=== PATIENT | male | born 1945 | race African-American/Black ===

== ENCOUNTER 2016-04-12 11:02 | Inpatient (IN) | payer OTHER ==
[2016-04-12 12:05] VITALS: BMI 23.8
--- NOTE | 2016-04-12 14:18 | HP ---
CIWA Score - CIWA Score Nausea/Vomitin Muscle Tremors: 3 Anxiety: 3 Agitation: 3 Paroxysmal Sweats: 2 Orientation: 0-Oriented Tacttile Disturbances: 2-Mild Itch/Numbness/Burn Auditory Disturbances: 2-Mild Harshness/Frighten Visual Disturbances: 2-Mild Sensitivity Headache: 2-Mild CIWA-Ar Total Score: 22 Admission ROS BHS - HPI Chief Complaint: i need help to stop drinking alcohol Allergies/Adverse Reactions: Allergies Allergy/AdvReac Type Severity Reaction Status Date / Time No Known Allergies Allergy Verified 04/12/16 13:03 History of Present Illness: this 70 years old male with alcohol dependence,withdrawal symptom,last detox to 05/04/15 [facility] longest period of sobriety 5 moths depression asthma arthritis seizure last 30 years ago Exam Limitations: No Limitations - Ebola screening Have you traveled outside of the country in the last 21 days: No (N) Have you had contact with anyone from an Ebola affected area: No Have you been sick,other than usual withdrawal symptoms: No Do you have a fever: No - Review of Systems Constitutional: Loss of Appetite, Malaise, Night Sweats, Weakness, Unintentional Wgt. Loss EENT: reports: Nose Congestion Respiratory: reports: No Symptoms reported, Other (asthma) Cardiac: reports: Palpitations GI: reports: Diarrhea, Nausea, Vomiting, Abdominal cramping : reports: No Symptoms Reported Musculoskeletal: reports: Back Pain, Muscle Pain Integumentary: reports: Dryness Neuro: reports: Headache, Tremors Endocrine: reports: No Symptoms Reported Hematology: reports: No Symptoms Reported Psychiatric: reports: Depressed Patient History - Patient Medical History Hx Anemia: No Hx Asthma: Yes (on albuterol inhaler ) Hx Chronic Obstructive Pulmonary Disease (COPD): No Hx Cancer: No Hx Cardiac Disorders: No Hx Congestive Heart Failure: No Hx Hypertension: Yes (no med) Hx Hypercholesterolemia: No Hx Pacemaker: No HX Cerebrovascular Accident: No Hx Seizures: Yes (40 years ago) Hx Dementia: No Hx Diabetes: No Hx Gastrointestinal Disorders: No Hx Liver Disease: No Hx Genitourinary Disorders: No Hx Sexually Transmitted Disorders: No Hx Renal Disease (ESRD): No Hx Thyroid Disease: No Hx Human Immunodeficiency Virus (HIV): No (NEGATIVE YEARS AGO) Hx Hepatitis C: No Hx Depression: Yes Hx Suicide Attempt: No Hx Bipolar Disorder: No Hx Schizophrenia: No Other Medical History: no suicidal,no homicidal - Patient Surgical History Past Surgical History: Yes Hx Neurologic Surgery: No Hx Cataract Extraction: No Hx Cardiac Surgery: No Hx Lung Surgery: No Hx Breast Surgery: No Hx Breast Biopsy: No Hx Abdominal Surgery: Yes (HERNIA REPAIR RIGHT) Hx Appendectomy: Yes Hx Cholecystectomy: No Hx Genitourinary Surgery: No Hx Section: No Hx Orthopedic Surgery: No Anesthesia Reaction: No - PPD History Previous Implant?: No Implanted On Prior [facility] Admission?: Yes Date: 05/01/15 Results: 0mm PPD to be Administered?: No - Smoking Cessation Smoking history: Former smoker Have you smoked in the past 12 months: No Aproximately how many cigarettes per day: 0 Hx Chewing Tobacco Use: No Initiated information on smoking cessation: Yes 'Breaking Loose' booklet given: 04/12/16 - Substance & Tx. History Hx Alcohol Use: Yes Hx Substance Use: No Substance Use Type: Alcohol Hx Substance Use Treatment: Yes ([facility] 04/29/15 TO 05/04/15) - Substances Abused Alcohol Route: Oral Frequency: Daily Amount used: 1 1/2 pint Vodka Age of first use: 48 Date of Last Use: 04/12/16 Family Disease History - Family Disease History Family History: Denies Admission Physical Exam S - Vital Signs Vital Signs: Vital Signs - 24 hr 04/12/16 12:03 Temperature 96.6 F L Pulse Rate 117 H Respiratory 18 Rate Blood Pressure 141/91 - Physical General Appearance: Yes: Moderate Distress, Tremorous, Irritable, Sweating, Anxious HEENTM: Yes: Nasal Congestion Respiratory: Yes: Lungs Clear Neck: Yes: Within Normal Limits Breast: Yes: Within Normal Limits Cardiology: Yes: Tachycardia Abdominal: Yes: Normal Bowel Sounds, Non Tender, Flat, Soft Genitourinary: Yes: Within Normal Limits Back: Yes: Muscle Spasm Musculoskeletal: Yes: Back pain, Muscle Pain Extremities: Yes: Tremors Neurological: Yes: fruit dumper II-XII NML intact, Fully Oriented, Alert, Motor Strength 5/5 Integumentary: Yes: Dry Lymphatic: Yes: Within Normal Limits - Diagnostic (1) Arthritis Current Visit: No Status: Chronic (2) Bronchial asthma Current Visit: No Status: Chronic Qualifiers: Asthma severity: unspecified severity Asthma complication type: uncomplicated Qualified Code(s): J45.909 - Unspecified asthma, uncomplicated (3) MDD (major depressive disorder) Current Visit: No Status: Chronic Qualifiers: Major depression episode severity: unspecified (4) Alcohol dependence with uncomplicated withdrawal Current Visit: Yes Status: Acute (5) Alcohol dependence with uncomplicated intoxication Current Visit: Yes Status: Acute (6) Syncope Current Visit: Yes Status: Acute (7) History of appendectomy Current Visit: Yes Status: Acute (8) History of hernia repair Current Visit: Yes Status: Acute Cleared for Admission [facility] - Detox or Rehab [facility] Level of Care: Medically Managed Detox Regimen/Protocol: Librium [facility] Breath Alcohol Content Breath Alcohol Content: 0.290 Urine Drug Screen - Results Drug Screen Negative: Yes
[2016-04-12] MEDS ORDERED: MAG HYDROX/AL HYDROX/SIMETH 30 ML UNIT-DOSE CUP PO PRN (14:38)
[2016-04-12] MEDS ORDERED: ACETAMINOPHEN 325 MG TABLET (FP) PO PRN (14:38)
[2016-04-12] MEDS ORDERED: MAGNESIUM HYDROX 2400MG/30ML ORAL SUSPENSION 30 ML CUP PO PRN (14:38)
[2016-04-12] MEDS ORDERED: P-EPHED 60MG/TRIPROLIDI 2.5MG TABLET PO PRN (14:38)
[2016-04-12] MEDS ORDERED: MAGNESIUM CITRATE 300 ML BOTTLE PO PRN (14:38)
[2016-04-12] MEDS ORDERED: chlordiazePOXIDE HCL 25 MG CAPSULE PO PRN (14:38)
[2016-04-12] MEDS ORDERED: MENTHOL/PHENOL 1 EACH UD MM PRN (14:38)
[2016-04-12] MEDS ORDERED: LOPERAMIDE HCL 2 MG CAPSULE PO PRN (14:38)
[2016-04-12] MEDS ORDERED: IBUPROFEN 400 MG TABLET (FP) PO PRN (14:38)
[2016-04-12] MEDS ORDERED: guaiFENesin/D-METHORPHAN HB 10 ML UNIT-DOSE CUPS PO PRN (14:38)
[2016-04-12] MEDS ORDERED: chlordiazePOXIDE HCL 25 MG CAPSULE PO ONE (15:00)
[2016-04-12] MEDS: chlordiazePOXIDE HCL 25 MG CAPSULE PO SCH ×2 (17:28→22:31)
[2016-04-12] MEDS: diphenhydrAMINE HCL 50 MG CAPSULE PO PRN (22:31)
[2016-04-12] MEDS: THIAMINE HCL 100 MG TABLET (FP) PO SCH (22:31)
[2016-04-12 22:54] LABS: URINE APPEARANCE CLEAR; URINE BILIRUBIN NEGATIVE (NEGATIVE); URINE COLOR YELLOW; URINE GLUCOSE (UA) NEGATIVE (NEGATIVE); URINE KETONE NEGATIVE (NEGATIVE); URINE LEUK ESTERASE NEGATIVE (NEGATIVE); URINE NITRITE NEGATIVE (NEGATIVE); URINE PROTEIN NEGATIVE (NEGATIVE); URINE UROBILINOGEN NEGATIVE E.U./dl (0.2-1.0)
[2016-04-12 22:58] LABS: URINE BLOOD 1+ (NEGATIVE)
[2016-04-12] MEDS: BUDESONIDE/FORMETEROL FUMARATE 80/4.5 mcg INHALER IH SCH (23:03)
[2016-04-12 23:05] LABS: URINE HYALINE CAST 9 /lpf; URINE MUCUS RARE; URINE RBC 1 /hpf (0-3); URINE WBC 1 /hpf (3-5)
[2016-04-13] MEDS: chlordiazePOXIDE HCL 25 MG CAPSULE PO SCH ×4 (06:13→22:38)
--- NOTE | 2016-04-13 10:23 | CONSULT ---
[facility] Psychiatric Consult - Data Date of interview: 04/13/16 Admission source: [facility] Identifying data: Readmission to [facility] for this 70 y/o seeking detox treatment on for alcohol dependence.Patient is ,a father of two, domiciled and retired on Social Security. Substance Abuse History: - Smoking Cessation. Smoking history: Former smoker. Have you smoked in the past 12 months: No. Aproximately how many cigarettes per day: 0. Hx Chewing Tobacco Use: No. Initiated information on smoking cessation: Yes. 'Breaking Loose' booklet given: 04/12/16. - Substance & Tx. History. Hx Alcohol Use: Yes. Hx Substance Use: No. Substance Use Type: Alcohol. Hx Substance Use Treatment: Yes ([facility] 04/29/15 TO 05/04/15). - Substances Abused. Alcohol. Route: Oral. Frequency: Daily. Amount used: 1 1/2 pint Vodka. Age of first use: 48. Date of Last Use: 04/12/16. Confirmed by patient. Medical History: Significant for a history of arthritis,alcohol-related seizure, bronchial asthma,COPD and right inguinal herniorraphy. Psychiatric History: Diagnosed with MDD in 2010 ([facility]ipitant : of ).No reported history of psychiatric hospitalizations.Mr Alejandro states that he dropped out of [facility]PD care at [facility] (around May 2015).Stopped taking Paxil.No history of suicide attempts. Physical/Sexual Abuse/Trauma History: Patient denies history of sexual abuse. Mental Status Exam - Mental Status Exam Alert and Oriented to: Time, Place, Person Cognitive Function: Good Patient Appearance: Well Groomed Mood: Withdrawn, Hopeful Affect: Constricted Patient Behavior: Fatigued, Appropriate, Cooperative Speech Pattern: Clear, Appropriate Voice Loudness: Normal Thought Process: Goal Oriented Thought Disorder: Not Present Hallucinations: Denies Suicidal Ideation: Denies Homicidal Ideation: Denies Insight/Judgement: Poor Sleep: Fair Appetite: Fair Muscle strength/Tone: Normal Gait/Station: Normal Psychiatric Findings - Problem List ([place] 1, 2,3) (1) Alcohol dependence with uncomplicated withdrawal Current Visit: Yes Status: Acute (2) MDD (major depressive disorder) Current Visit: Yes Status: Chronic Qualifiers: Major depression episode severity: unspecified (3) Bronchial asthma Current Visit: Yes Status: Chronic Qualifiers: Asthma severity: unspecified severity Asthma complication type: uncomplicated Qualified Code(s): J45.909 - Unspecified asthma, uncomplicated (4) Arthritis Current Visit: Yes Status: Chronic (5) History of appendectomy Current Visit: No Status: Chronic (6) History of hernia repair Current Visit: No Status: Chronic - Initial Treatment Plan Initial Treatment Plan: Psychoeducation.Detoxification.Patient has expressed the wish to resume treatment with an antidepressant.Lexapro is selected (paxil not effective as patient's report).Will start with lexapro 5 mg po daily.Side effects/benefits discussed with the patient.He agrees with this plan.Observation.
[2016-04-13] MEDS: PRENATAL VITAMINS W/ FOLIC ACID TABLET (FP) PO SCH (10:46)
[2016-04-13] MEDS: BUDESONIDE/FORMETEROL FUMARATE 80/4.5 mcg INHALER IH SCH ×2 (10:47→22:55)
[2016-04-13 11:06] LABS: MCH 32.6 pg (25.7-33.7); MCHC 32.9 g/dl (32.0-35.9); MEAN PLT VOLUME 8.3 fl (7.5-11.1); PLATELET COUNT 111 K/MM3 (134-434); RDW 14.9 % (11.9-15.9); WHITE BLOOD COUNT 4.2 K/mm3 (4.0-10.0)
[2016-04-13 11:11] LABS: ALBUMIN 3.5 g/dl (3.4-5.0); ANION GAP 7 (8-16); BILIRUBIN,TOTAL 0.7 mg/dL (0.2-1.0); CALCIUM 9.2 mg/dL (8.5-10.1); CO2 36 mmol/L (21-32); CREATININE 0.7 mg/dL (0.7-1.3); GLUCOSE,RANDOM 100 mg/dL (74-106); SGOT/AST 60 U/L (15-37); SGPT/ALT 36 U/L (12-78); TOT PROT 7.1 g/dl (6.4-8.2)
[2016-04-13 11:12] LABS: ALK PHOS 78 U/L (45-117)
--- NOTE | 2016-04-13 11:40 | PN ---
S CIWA - CIWA Score Nausea/Vomitin Muscle Tremors: 3 Anxiety: 3 Agitation: 3 Paroxysmal Sweats: 3 Orientation: 0-Oriented Tacttile Disturbances: 2-Mild Itch/Numbness/Burn Auditory Disturbances: 0-None Visual Disturbances: 0-None Headache: 0-None Present CIWA-Ar Total Score: 17 BHS Progress Note (SOAP) Subjective: INTERRUPTED SLEEP, SWEATS, SHAKES , DRY ITCHY EYES Objective: 04/13/16 11:38 Vital Signs Temperature 98.3 F 04/13/16 10:30 Pulse Rate 78 04/13/16 10:30 Respiratory Rate 18 04/13/16 10:30 Blood Pressure 129/84 04/13/16 10:30 O2 Sat by Pulse Oximetry (%) Laboratory Tests 04/12/16 04/13/16 04/13/16 22:40 06:30 06:30 WBC 4.2 RBC 4.69 Hgb 15.3 Hct 46.4 MCV 99.0 H MCHC 32.9 RDW 14.9 D Plt Count 111 L MPV 8.3 Sodium 141 Potassium 3.1 L Chloride 98 Carbon Dioxide 36 H Anion Gap 7 L BUN 11 D Creatinine 0.7 Creat Clearance w eGFR > 60 Random Glucose 100 Calcium 9.2 Total Bilirubin 0.7 D AST 60 H D ALT 36 D Alkaline Phosphatase 78 Total Protein 7.1 Albumin 3.5 Urine Color Yellow Urine Appearance Clear Urine pH 6.0 Ur Specific [place] 1.009 Urine Protein Negative Urine Glucose (UA) Negative Urine Ketones Negative Urine Blood 1+ H Urine Nitrite Negative Urine Bilirubin Negative Urine Urobilinogen Negative Ur Leukocyte Esterase Negative Urine RBC 1 Urine WBC 1 Hyaline Casts 9 Urine Mucus Rare PT AOX3 IN NAD AMBULATING Assessment: 04/13/16 11:38 WITHDRAWL SX;S ALLERGY HYPOKALEMIA 04/13/16 11:40 Plan: CONT. DETOX INCREASE FLUIDS VISINE A GGTS KDUR /D
[2016-04-13 11:43] LABS: HIV 1 & 2 AB NEGATIVE; HIV 1 AGp24 NEGATIVE
[2016-04-13] MEDS ORDERED: POTASSIUM CHLORIDE TABS 20 MEQ TABLET.ER (FP) PO ONE (11:45)
[2016-04-13] MEDS: NAPHAZOLINE/PHENIRAMINE OPHTHALMIC 15 ML BOTTLE OU PRN (15:27)
[2016-04-13] MEDS: THIAMINE HCL 100 MG TABLET (FP) PO SCH (22:38)
[2016-04-13] MEDS: diphenhydrAMINE HCL 50 MG CAPSULE PO PRN (22:39)
[2016-04-13] MEDS: ALBUTEROL SO4 6.7 GM HFA INHALER IH PRN (23:19)
[2016-04-14] MEDS: chlordiazePOXIDE HCL 25 MG CAPSULE PO SCH ×2 (05:42→10:54)
[2016-04-14] MEDS: hydrOXYzine PAMOATE 25 MG CAPSULE (FP) PO PRN (09:06)
[2016-04-14] MEDS: POTASSIUM CHLORIDE TABS 20 MEQ TABLET.ER (FP) PO SCH (10:54)
[2016-04-14] MEDS: PRENATAL VITAMINS W/ FOLIC ACID TABLET (FP) PO SCH (10:54)
[2016-04-14] MEDS: BUDESONIDE/FORMETEROL FUMARATE 80/4.5 mcg INHALER IH SCH ×2 (10:55→22:17)
[2016-04-14] MEDS: ESCITALOPRAM OXALATE 10 MG TABLET (FP) PO SCH (10:55)
--- NOTE | 2016-04-14 11:27 | PN ---
[facility] CIWA - CIWA Score Nausea/Vomitin-No Nausea/No Vomiting Muscle Tremors: 4-Moderate,w/Arms Extend Anxiety: 3 Agitation: 4-Moderately Restless Paroxysmal Sweats: 3 Orientation: 0-Oriented Tacttile Disturbances: 0-None Auditory Disturbances: 0-None Visual Disturbances: 0-None Headache: 1-Very Mild CIWA-Ar Total Score: 15 BHS Progress Note (SOAP) Subjective: appetite is better sweats body aches shakes interrupted sleep Objective: 04/14/16 11:25 Vital Signs Temperature 97.7 F 04/14/16 11:20 Pulse Rate 108 H 04/14/16 11:20 Respiratory Rate 16 04/14/16 11:20 Blood Pressure 106/53 04/14/16 11:20 O2 Sat by Pulse Oximetry (%) Laboratory Tests 04/12/16 04/12/16 04/13/16 06:30 22:40 06:30 WBC 4.2 RBC 4.69 Hgb 15.3 Hct 46.4 MCV 99.0 H MCHC 32.9 RDW 14.9 D Plt Count 111 L MPV 8.3 Sodium Potassium Chloride Carbon Dioxide Anion Gap BUN Creatinine Creat Clearance w eGFR Random Glucose Calcium Total Bilirubin AST ALT Alkaline Phosphatase Total Protein Albumin Urine Color Yellow Urine Appearance Clear Urine pH 6.0 Ur Specific [place] 1.009 Urine Protein Negative Urine Glucose (UA) Negative Urine Ketones Negative Urine Blood 1+ H Urine Nitrite Negative Urine Bilirubin Negative Urine Urobilinogen Negative Ur Leukocyte Esterase Negative Urine RBC 1 Urine WBC 1 Hyaline Casts 9 Urine Mucus Rare RPR Titer HIV 1&2 Antibody Screen Negative HIV P24 Antigen Negative 04/13/16 04/13/16 06:30 06:30 WBC RBC Hgb Hct MCV MCHC RDW Plt Count MPV Sodium 141 Potassium 3.1 L Chloride 98 Carbon Dioxide 36 H Anion Gap 7 L BUN 11 D Creatinine 0.7 Creat Clearance w eGFR > 60 Random Glucose 100 Calcium 9.2 Total Bilirubin 0.7 D AST 60 H D ALT 36 D Alkaline Phosphatase 78 Total Protein 7.1 Albumin 3.5 Urine Color Urine Appearance Urine pH Ur Specific [place] Urine Protein Urine Glucose (UA) Urine Ketones Urine Blood Urine Nitrite Urine Bilirubin Urine Urobilinogen Ur Leukocyte Esterase Urine RBC Urine WBC Hyaline Casts Urine Mucus RPR Titer Nonreactive HIV 1&2 Antibody Screen HIV P24 Antigen awake/alert ambulating no acute distress Assessment: 04/14/16 11:26 withdrawal sx Plan: continue detox increase fluids motrin prn
[2016-04-14] MEDS: chlordiazePOXIDE 5 MG CAPSULE PO SCH ×2 (17:19→22:16)
[2016-04-14] MEDS: diphenhydrAMINE HCL 50 MG CAPSULE PO PRN (22:16)
[2016-04-14] MEDS: THIAMINE HCL 100 MG TABLET (FP) PO SCH (22:16)
[2016-04-14] MEDS: ALBUTEROL SO4 6.7 GM HFA INHALER IH PRN (22:17)
[2016-04-15] MEDS: chlordiazePOXIDE 5 MG CAPSULE PO SCH ×2 (06:01→10:30)
[2016-04-15] MEDS: POTASSIUM CHLORIDE TABS 20 MEQ TABLET.ER (FP) PO SCH (10:30)
[2016-04-15] MEDS: hydrOXYzine PAMOATE 25 MG CAPSULE (FP) PO PRN (10:30)
[2016-04-15] MEDS: PRENATAL VITAMINS W/ FOLIC ACID TABLET (FP) PO SCH (10:30)
[2016-04-15] MEDS: ESCITALOPRAM OXALATE 10 MG TABLET (FP) PO SCH (10:31)
[2016-04-15] MEDS: BUDESONIDE/FORMETEROL FUMARATE 80/4.5 mcg INHALER IH SCH ×2 (10:31→22:39)
[2016-04-15] MEDS: NAPHAZOLINE/PHENIRAMINE OPHTHALMIC 15 ML BOTTLE OU PRN (10:31)
--- NOTE | 2016-04-15 11:17 | PN ---
BHS Progress Note (SOAP) Subjective: interrupteed sleep, sweats, shakes Objective: 04/15/16 11:13 Vital Signs Temperature 98 F 04/15/16 10:00 Pulse Rate 96 H 04/15/16 10:00 Respiratory Rate 16 04/15/16 10:00 Blood Pressure 145/93 04/15/16 10:00 O2 Sat by Pulse Oximetry (%) Laboratory Tests 04/12/16 04/12/16 04/13/16 06:30 22:40 06:30 WBC 4.2 RBC 4.69 Hgb 15.3 Hct 46.4 MCV 99.0 H MCHC 32.9 RDW 14.9 D Plt Count 111 L MPV 8.3 Sodium Potassium Chloride Carbon Dioxide Anion Gap BUN Creatinine Creat Clearance w eGFR Random Glucose Calcium Total Bilirubin AST ALT Alkaline Phosphatase Total Protein Albumin Urine Color Yellow Urine Appearance Clear Urine pH 6.0 Ur Specific [place] 1.009 Urine Protein Negative Urine Glucose (UA) Negative Urine Ketones Negative Urine Blood 1+ H Urine Nitrite Negative Urine Bilirubin Negative Urine Urobilinogen Negative Ur Leukocyte Esterase Negative Urine RBC 1 Urine WBC 1 Hyaline Casts 9 Urine Mucus Rare RPR Titer HIV 1&2 Antibody Screen Negative HIV P24 Antigen Negative 04/13/16 04/13/16 06:30 06:30 WBC RBC Hgb Hct MCV MCHC RDW Plt Count MPV Sodium 141 Potassium 3.1 L Chloride 98 Carbon Dioxide 36 H Anion Gap 7 L BUN 11 D Creatinine 0.7 Creat Clearance w eGFR > 60 Random Glucose 100 Calcium 9.2 Total Bilirubin 0.7 D AST 60 H D ALT 36 D Alkaline Phosphatase 78 Total Protein 7.1 Albumin 3.5 Urine Color Urine Appearance Urine pH Ur Specific [place] Urine Protein Urine Glucose (UA) Urine Ketones Urine Blood Urine Nitrite Urine Bilirubin Urine Urobilinogen Ur Leukocyte Esterase Urine RBC Urine WBC Hyaline Casts Urine Mucus RPR Titer Nonreactive HIV 1&2 Antibody Screen HIV P24 Antigen interrupted sleep, sweats, shakes 04/15/16 11:15 Assessment: 04/15/16 11:14 withdrawl sx's hypokalemia 04/15/16 11:15 04/15/16 11:16 Plan: cont. detox increase fluids kdur 20meg /d
[2016-04-15] MEDS: chlordiazePOXIDE HCL 10 MG CAPSULE PO SCH ×2 (17:38→22:36)
[2016-04-15] MEDS: diphenhydrAMINE HCL 50 MG CAPSULE PO PRN (22:37)
[2016-04-15] MEDS: THIAMINE HCL 100 MG TABLET (FP) PO SCH (22:37)
[2016-04-15] MEDS: ALBUTEROL SO4 6.7 GM HFA INHALER IH PRN (22:40)
[2016-04-16] MEDS: chlordiazePOXIDE HCL 10 MG CAPSULE PO SCH ×2 (05:28→10:45)
--- NOTE | 2016-04-16 08:11 | DS ---
[facility] Detox Discharge Summary Admission Date: 04/12/16 Discharge Date: 04/16/16 - History Present History: Alcohol Dependence - Physical Exam Results Vital Signs: Vital Signs Temperature 97.3 F L 04/16/16 06:00 Pulse Rate 83 04/16/16 06:00 Respiratory Rate 16 04/16/16 06:00 Blood Pressure 140/79 04/16/16 06:00 O2 Sat by Pulse Oximetry (%) - Treatment Hospital Course: Detox Protocol Followed, Detoxed Safely, Responded well, Discharged Condition Good, Rehab Referral Accepted - Medication Discharge Medications: Ambulatory Orders Tetrahydrozoline HCl/Zn Sulf [Visine Allergy Relief Drop] 2 drop AU PRN PRN Paroxetine HCl [Paxil -] 20 mg PO DAILY #30 tablet 04/30/15 Albuterol Sulfate Inhaler - [Ventolin HFA Inhaler -] 2 inh PO Q4H PRN #1 cartridge 05/04/15 Budesonide/Formeterol Fumarate [SYMBICORT 80/4.5mcg -] 2 inh IH BID #1 canister 05/04/15 - Diagnosis (1) Alcohol dependence with uncomplicated intoxication Current Visit: Yes Status: Chronic (2) Alcohol dependence with uncomplicated withdrawal Current Visit: Yes Status: Chronic (3) Syncope Current Visit: Yes Status: Acute (4) Arthritis Current Visit: Yes Status: Chronic (5) Bronchial asthma Current Visit: Yes Status: Chronic Qualifiers: Asthma severity: unspecified severity Asthma complication type: uncomplicated Qualified Code(s): J45.909 - Unspecified asthma, uncomplicated (6) MDD (major depressive disorder) Current Visit: Yes Status: Chronic Qualifiers: Major depression episode severity: unspecified (7) Alcohol dependence Current Visit: No Status: Active (8) Depression Current Visit: No Status: Chronic Qualifiers: Depression Type: unspecified Qualified Code(s): F32.9 - Major depressive disorder, single episode, unspecified (9) History of appendectomy Current Visit: No Status: Chronic (10) History of hernia repair Current Visit: No Status: Chronic - AMA Did Patient Leave Against Medical Advice: No
--- NOTE | 2016-04-16 10:00 | PN ---
[facility] Progress Note Note: Psychiatry Attending's note: Follow up visit.Patient seen at his request. Mr Allen expresses his decision to stop taking lexapro. Patient is made aware of the risk of non-adherence to medications. Also informed of the benefits of antidepressant drugs. No script issued for escitalopram (patient declined). Mental status remains stable for discharge. Uneventful hospital course.
[2016-04-16 10:10] VITALS: BP 111/77; PULSE 109; TEMP 97.7
[2016-04-16] MEDS: PRENATAL VITAMINS W/ FOLIC ACID TABLET (FP) PO SCH (10:42)
[2016-04-16] MEDS: ESCITALOPRAM OXALATE 10 MG TABLET (FP) PO SCH (10:43)
== END 2016-04-16 11:23 | disposition home or self-care (01) | DRG 897 ==
LOC: YASAS 11:02 → Y6N 13:39
PROVIDERS: ADMIT Internal Medicine; ATTEND Internal Medicine
PROC: HZ2ZZZZ Detoxification Services for Substance Abuse Treatment (ICD-10-PCS; principal; 2016-04-12)
DX: F10.230 Alcohol dependence with withdrawal, uncomplicated (principal); F33.9 Major depressive disorder, recurrent, unspecified; J45.909 Unspecified asthma, uncomplicated; J44.9 Chronic obstructive pulmonary disease, unspecified; E87.6 Hypokalemia; M12.9 Arthropathy, unspecified; R00.0 Tachycardia, unspecified; T78.40XA Allergy, unspecified, initial encounter; X58.XXXA Exposure to other specified factors, initial encounter; Z90.89 Acquired absence of other organs; Z86.69 Personal history of other diseases of the nervous system and sense organs; Z86.79 Personal history of other diseases of the circulatory system; Z87.891 Personal history of nicotine dependence
CPT/HCPCS: 36415; 80053; 81003; 81015; 85027; 86593; 87389; 93005; 93010

== ENCOUNTER 2016-06-01 18:31 | Inpatient (IN) | payer OTHER ==
[2016-06-01 19:21] VITALS: BMI 23.5
--- NOTE | 2016-06-01 20:18 | HP ---
CIWA Score - CIWA Score Nausea/Vomitin-Mild Nausea/No Vomiting Muscle Tremors: 5 Anxiety: 4-Mod. Anxious/Guarded Agitation: 4-Moderately Restless Paroxysmal Sweats: 1-Minimal Palms Moist Orientation: 3-Disoriented Date>2 days Tacttile Disturbances: 0-None Auditory Disturbances: 0-None Visual Disturbances: 0-None Headache: 2-Mild CIWA-Ar Total Score: 20 Admission ROS BHS - HPI Chief Complaint: WITHDRAWAL SX Allergies/Adverse Reactions: Allergies Allergy/AdvReac Type Severity Reaction Status Date / Time No Known Allergies Allergy Verified 06/01/16 19:27 History of Present Illness: 70 YEARS OLD MALE WITH LONG HISTORY OF ALCOHOL DEPENDENCE, HAS DRY EYES, AND DEPRESSION, IS ADMITTED TO DETOX Exam Limitations: No Limitations - Ebola screening Have you traveled outside of the country in the last 21 days: No Have you had contact with anyone from an Ebola affected area: No Have you been sick,other than usual withdrawal symptoms: No Do you have a fever: No - Review of Systems Constitutional: Chills, Loss of Appetite, Changes in sleep, Unintentional Wgt. Loss EENT: reports: Other (EYE GLASSES) Respiratory: reports: SOB with Exertion, Productive cough Cardiac: reports: No Symptoms Reported GI: reports: Nausea, Poor Appetite, Poor Fluid Intake, Indigestion, Abdominal cramping : reports: No Symptoms Reported Musculoskeletal: reports: No Symptoms Reported Integumentary: reports: No Symptoms Reported Neuro: reports: Seizure (30 YEARS AGO ALCOHOL RELATED), Tremors Endocrine: reports: No Symptoms Reported Hematology: reports: No Symptoms Reported Psychiatric: reports: Judgement Intact, Depressed Other Systems: Reviewed and Negative Patient History - Patient Medical History Hx Anemia: No Hx Asthma: Yes (on albuterol inhaler ) Hx Chronic Obstructive Pulmonary Disease (COPD): No Hx Cancer: No Hx Cardiac Disorders: No Hx Congestive Heart Failure: No Hx Hypertension: No (no med) Hx Hypercholesterolemia: No Hx Pacemaker: No HX Cerebrovascular Accident: No Hx Seizures: Yes (40 years ago) Hx Dementia: No Hx Diabetes: No Hx Gastrointestinal Disorders: No Hx Liver Disease: No Hx Genitourinary Disorders: No Hx Sexually Transmitted Disorders: No Hx Renal Disease (ESRD): No Hx Thyroid Disease: No Hx Human Immunodeficiency Virus (HIV): No (NEGATIVE YEARS AGO) Hx Hepatitis C: No Hx Depression: Yes Hx Suicide Attempt: No Hx Bipolar Disorder: No Hx Schizophrenia: No - Patient Surgical History Past Surgical History: Yes Hx Neurologic Surgery: No Hx Cataract Extraction: No Hx Cardiac Surgery: No Hx Lung Surgery: No Hx Breast Surgery: No Hx Breast Biopsy: No Hx Abdominal Surgery: Yes (HERNIA REPAIR RIGHT) Hx Appendectomy: Yes Hx Cholecystectomy: No Hx Genitourinary Surgery: No Hx Orthopedic Surgery: No Anesthesia Reaction: No - PPD History Previous Implant?: Yes Documented Results: Negative w/proof Implanted On Prior [facility] Admission?: Yes Date: 05/01/15 Results: 0mm PPD to be Administered?: Yes - Smoking Cessation Smoking history: Former smoker Have you smoked in the past 12 months: No Aproximately how many cigarettes per day: 0 Cigars Per Day: 0 Hx Chewing Tobacco Use: No Initiated information on smoking cessation: Yes 'Breaking Loose' booklet given: 06/01/16 - Substance & Tx. History Hx Alcohol Use: Yes Hx Substance Use: No Substance Use Type: Alcohol Hx Substance Use Treatment: Yes - Substances Abused Alcohol Route: Oral Frequency: Daily Amount used: liquor- 3 pints Age of first use: 12 Date of Last Use: 06/01/16 Family Disease History - Family Disease History Family Disease History: Heart Disease: Father (), Other: Grandparent ( UNCLE ), Mother (), Brother (ALCOHOL ) Admission Physical Exam S - Vital Signs Vital Signs: Vital Signs - 24 hr 06/01/16 19:19 Temperature 95.9 F L Pulse Rate 122 H Respiratory 20 Rate Blood Pressure 127/80 - Physical General Appearance: Yes: Appropriately Dressed, Moderate Distress, Alcohol on Breath, Thin, Tremorous, Irritable, Sweating, Anxious HEENTM: Yes: Hearing grossly Normal, Normal ENT Inspection, Normocephalic, Normal Voice Respiratory: Yes: Chest Non-Tender, No Respiratory Distress, No Accessory Muscle Use, Wheezing, Expiration Neck: Yes: Supple, Trachea in good position Breast: Yes: Breasts Symetrical Cardiology: Yes: Regular Rhythm, S1, S2, Tachycardia Abdominal: Yes: Non Tender, Soft Genitourinary: Yes: Within Normal Limits Back: Yes: Normal Inspection Musculoskeletal: Yes: full range of Motion, Gait Steady, Back pain Extremities: Yes: Normal Range of Motion, Non-Tender, Tremors Neurological: Yes: Alert, Motor Strength 5/5, Normal Response, Depressed Affect Integumentary: Yes: Warm, Clammy Lymphatic: Yes: Within Normal Limits - Diagnostic (1) Alcohol dependence with uncomplicated withdrawal Current Visit: Yes Status: Acute (2) Bronchial asthma Current Visit: Yes Status: Acute Qualifiers: Asthma severity: mild persistent Asthma complication type: uncomplicated Qualified Code(s): J45.30 - Mild persistent asthma, uncomplicated (3) Depression Current Visit: Yes Status: Suspected Qualifiers: Depression Type: dysthymia Qualified Code(s): F34.1 - Dysthymic disorder Comment: "MY FIVE YEARS AGO" TEARFUL (4) Dry eyes Current Visit: Yes Status: Acute (5) GERD (gastroesophageal reflux disease) Current Visit: Yes Status: Acute Qualifiers: Esophagitis presence: without esophagitis Qualified Code(s): K21.9 - Gastro-esophageal reflux disease without esophagitis (6) Weight loss Current Visit: Yes Status: Acute Cleared for Admission S - Detox or Rehab [facility] Level of Care: Medically Managed Detox Regimen/Protocol: Librium [facility] Breath Alcohol Content Breath Alcohol Content: 0.235 Urine Drug Screen - Results Drug Screen Negative: No Urine Drug Screen Results: BZO-Benzodiazepines
[2016-06-01] MEDS ORDERED: P-EPHED 60MG/TRIPROLIDI 2.5MG TABLET PO PRN (20:24)
[2016-06-01] MEDS ORDERED: MAGNESIUM CITRATE 300 ML BOTTLE PO PRN (20:24)
[2016-06-01] MEDS ORDERED: guaiFENesin/D-METHORPHAN HB 10 ML UNIT-DOSE CUPS PO PRN (20:24)
[2016-06-01] MEDS ORDERED: LOPERAMIDE HCL 2 MG CAPSULE PO PRN (20:24)
[2016-06-01] MEDS ORDERED: MAGNESIUM HYDROX 2400MG/30ML ORAL SUSPENSION 30 ML CUP PO PRN (20:24)
[2016-06-01] MEDS ORDERED: MENTHOL/PHENOL 1 EACH UD MM PRN (20:24)
[2016-06-01] MEDS ORDERED: MAG HYDROX/AL HYDROX/SIMETH 30 ML UNIT-DOSE CUP PO PRN (20:24)
[2016-06-01] MEDS ORDERED: ACETAMINOPHEN 325 MG TABLET (FP) PO PRN (20:24)
[2016-06-01] MEDS ORDERED: chlordiazePOXIDE HCL 25 MG CAPSULE PO PRN (20:24)
[2016-06-01] MEDS ORDERED: hydrOXYzine PAMOATE 50 MG CAPSULE (FP) PO PRN (20:24)
[2016-06-01] MEDS ORDERED: diphenhydrAMINE HCL 50 MG CAPSULE PO PRN (20:24)
[2016-06-01] MEDS ORDERED: chlordiazePOXIDE HCL 25 MG CAPSULE PO ONE (20:24)
[2016-06-01] MEDS ORDERED: ALBUTEROL SO4 2.5/IPRATROPIUM 0.5 INH SOL 3 ML VIAL.NEB. NEB PRN (20:27)
[2016-06-01] MEDS: RANITIDINE HCL 150 MG TABLET (FP) PO SCH (21:30)
[2016-06-01] MEDS: THIAMINE HCL 100 MG TABLET (FP) PO SCH (21:30)
[2016-06-01] MEDS: BUDESONIDE/FORMETEROL FUMARATE 80/4.5 mcg INHALER IH SCH (21:35)
[2016-06-01] MEDS: chlordiazePOXIDE HCL 25 MG CAPSULE PO SCH (22:41)
[2016-06-01] MEDS: ARTIFICIAL TEARS (POLYVINYL ALCOHOL 1.4%) OPTH DROPS OU SCH (22:43)
[2016-06-02] MEDS: chlordiazePOXIDE HCL 25 MG CAPSULE PO SCH ×4 (05:58→22:51)
--- NOTE | 2016-06-02 09:42 | CONSULT ---
[facility] Psychiatric Consult - Data Date of interview: 06/02/16 Admission source: [facility] Identifying data: This is another admission to [facility] for this 70 y/o seeking detox treatment on for alcohol dependence.Patient is ,a father of two,domiciled,living in prison and supported on Social Security benefits. Substance Abuse History: - Smoking Cessation. Smoking history: Former smoker. Have you smoked in the past 12 months: No. Aproximately how many cigarettes per day: 0. Cigars Per Day: 0. Hx Chewing Tobacco Use: No. Initiated information on smoking cessation: Yes. 'Breaking Loose' booklet given: . - Substance & Tx. History. Hx Alcohol Use: Yes. Hx Substance Use: No. Substance Use Type: Alcohol. Hx Substance Use Treatment: Yes. - Substances Abused. Alcohol. Route: Oral. Frequency: Daily. Amount used: liquor- 3 pints. Age of first use: 12. Date of Last Use: 06/01/16. Confirmed by patient in this interview. Medical History: Significant for a history of arthritis,alcohol-related seizure, bronchial asthma,COPD and right inguinal herniorraphy. Psychiatric History: Diagnosed with MDD after the of his in 2010.No reported history of psychiatric hospitalizations.No OPD care since discharged from [facility] in April 2016. May 2015).Stopped taking Paxil.In this interview,the patient expresses the wish to get back on paroxetine.No history of suicide attempts. Physical/Sexual Abuse/Trauma History: No history of sexual abuse. Mental Status Exam - Mental Status Exam Alert and Oriented to: Time, Place, Person Cognitive Function: Grossly Intact Patient Appearance: Well Groomed Mood: Nervous, Withdrawn Affect: Mood Congruent Patient Behavior: Fatigued, Appropriate, Cooperative Speech Pattern: Clear Voice Loudness: Normal Thought Process: Goal Oriented Thought Disorder: Not Present Hallucinations: Denies Suicidal Ideation: Denies Homicidal Ideation: Denies Insight/Judgement: Poor Sleep: Well Appetite: Good Muscle strength/Tone: Normal Gait/Station: Normal Psychiatric Findings - Problem List ([place] 1, 2,3) (1) Alcohol dependence with uncomplicated withdrawal Current Visit: Yes Status: Acute (2) MDD (major depressive disorder) Current Visit: Yes Status: Chronic Qualifiers: Major depression episode severity: unspecified (3) Bronchial asthma Current Visit: Yes Status: Chronic Qualifiers: Asthma severity: mild persistent Asthma complication type: uncomplicated Qualified Code(s): J45.30 - Mild persistent asthma, uncomplicated (4) GERD (gastroesophageal reflux disease) Current Visit: Yes Status: Chronic Qualifiers: Esophagitis presence: without esophagitis Qualified Code(s): K21.9 - Gastro-esophageal reflux disease without esophagitis (5) Arthritis Current Visit: Yes Status: Chronic (6) History of appendectomy Current Visit: Yes Status: Chronic (7) History of hernia repair Current Visit: Yes Status: Chronic - Initial Treatment Plan Initial Treatment Plan: Psychoeducation.Detoxification.Paxil 10 mg (reduced) po daily.Side effects/benefits discussed with the patient.He agrees with this plan of care.Observation.
[2016-06-02 10:09] LABS: MCH 32.6 pg (25.7-33.7); MCHC 32.6 g/dl (32.0-35.9); MEAN CELL VOLUME 100.1 fl (80-96); PLATELET COUNT 91 K/MM3 (134-434); RDW 17.4 % (11.9-15.9)
[2016-06-02 10:26] LABS: ALBUMIN 3.1 g/dl (3.4-5.0); ALK PHOS 87 U/L (45-117); ANION GAP 13 (8-16); BILIRUBIN,TOTAL 0.7 mg/dL (0.2-1.0); CALCIUM 7.7 mg/dL (8.5-10.1); CO2 34 mmol/L (21-32); CREATININE 0.7 mg/dL (0.7-1.3); GLUCOSE,RANDOM 85 mg/dL (74-106); SGOT/AST 74 U/L (15-37); SGPT/ALT 25 U/L (12-78)
[2016-06-02] MEDS: ARTIFICIAL TEARS (POLYVINYL ALCOHOL 1.4%) OPTH DROPS OU SCH ×4 (10:27→22:51)
[2016-06-02] MEDS: RANITIDINE HCL 150 MG TABLET (FP) PO SCH ×2 (10:28→22:51)
[2016-06-02] MEDS: BUDESONIDE/FORMETEROL FUMARATE 80/4.5 mcg INHALER IH SCH ×2 (10:28→22:52)
[2016-06-02] MEDS: PRENATAL VITAMINS W/ FOLIC ACID TABLET (FP) PO SCH (10:28)
--- NOTE | 2016-06-02 11:06 | PN ---
[facility] CIWA - CIWA Score Nausea/Vomitin-No Nausea/No Vomiting Muscle Tremors: 4-Moderate,w/Arms Extend Anxiety: 4-Mod. Anxious/Guarded Agitation: 4-Moderately Restless Paroxysmal Sweats: 1-Minimal Palms Moist Orientation: 0-Oriented Tacttile Disturbances: 3-Moderate Itch/Numb/Burn Auditory Disturbances: 0-None Visual Disturbances: 0-None Headache: 0-None Present CIWA-Ar Total Score: 16 BHS Progress Note (SOAP) Subjective: ANXIETY,TREMORS,CHILLS,DECREASED APPETITE, EYE IRRITATIONS-USES VISINE-A. Objective: 06/02/16 11:06 Vital Signs Temperature 96.4 F L 06/02/16 10:48 Pulse Rate 108 H 06/02/16 10:48 Respiratory Rate 20 06/02/16 10:48 Blood Pressure 128/82 06/02/16 10:48 O2 Sat by Pulse Oximetry (%) Laboratory Last Values WBC 4.0 K/mm3 (4.0-10.0) 06/02/16 07:50 RBC 4.57 M/mm3 (4.00-5.60) 06/02/16 07:50 Hgb 14.9 GM/dL (11.7-16.9) 06/02/16 07:50 Hct 45.7 % (35.4-49) 06/02/16 07:50 MCV 100.1 fl (80-96) H 06/02/16 07:50 MCHC 32.6 g/dl (32.0-35.9) 06/02/16 07:50 RDW 17.4 % (11.9-15.9) H D 06/02/16 07:50 Plt Count 91 K/MM3 (134-434) L 06/02/16 07:50 MPV 8.0 fl (7.5-11.1) 06/02/16 07:50 OTHER LABS PENDING Assessment: 06/02/16 11:06 WITHDRAWAL SX Plan: CONTINUE DETOX
[2016-06-02 14:39] LABS: URINE APPEARANCE CLEAR; URINE BILIRUBIN NEGATIVE (NEGATIVE); URINE COLOR AMBER; URINE GLUCOSE (UA) 1+ (NEGATIVE); URINE KETONE NEGATIVE (NEGATIVE); URINE LEUK ESTERASE NEGATIVE (NEGATIVE); URINE NITRITE NEGATIVE (NEGATIVE); URINE UROBILINOGEN 4.0 E.U/dl E.U./dl (0.2-1.0)
[2016-06-02 14:40] LABS: URINE BLOOD 1+ (NEGATIVE); URINE PROTEIN 1+ (NEGATIVE)
[2016-06-02] MEDS ORDERED: POTASSIUM CHLORIDE TABS 20 MEQ TABLET.ER (FP) PO ONE (14:44)
[2016-06-02 14:47] LABS: URINE HYALINE CAST 18 /lpf; URINE MUCUS MANY; URINE RBC 2 /hpf (0-3); URINE WBC 7 /hpf (3-5)
--- NOTE | 2016-06-02 16:11 | EKG ---
Test Reason : Blood Pressure : / mmHG Vent. Rate : 112 BPM Atrial Rate : 112 BPM P-R Int : 176 ms QRS Dur : 076 ms QT Int : 350 ms P-R-T Axes : 059 004 051 degrees QTc Int : 477 ms SINUS TACHYCARDIA POSSIBLE LEFT ATRIAL ENLARGEMENT SEPTAL INFARCT , AGE UNDETERMINED ABNORMAL ECG NO PREVIOUS ECGS AVAILABLE Confirmed by REAL MCCLELLAN MD ([id number]) on 06/02/2016 4:11:40 PM Referred By: Confirmed By:REAL MCCLELLAN MD
[2016-06-02] MEDS: THIAMINE HCL 100 MG TABLET (FP) PO SCH (22:52)
[2016-06-02] MEDS: POTASSIUM CHLORIDE TABS 20 MEQ TABLET.ER (FP) PO SCH (22:52)
[2016-06-03] MEDS: chlordiazePOXIDE HCL 25 MG CAPSULE PO SCH ×3 (05:53→17:31)
[2016-06-03] MEDS: ARTIFICIAL TEARS (POLYVINYL ALCOHOL 1.4%) OPTH DROPS OU SCH (10:58)
[2016-06-03] MEDS: BUDESONIDE/FORMETEROL FUMARATE 80/4.5 mcg INHALER IH SCH ×2 (10:58→22:30)
[2016-06-03] MEDS: PRENATAL VITAMINS W/ FOLIC ACID TABLET (FP) PO SCH (10:59)
[2016-06-03] MEDS: PARoxetine HCL 10 MG TABLET (FP) PO SCH (10:59)
[2016-06-03] MEDS: POTASSIUM CHLORIDE TABS 20 MEQ TABLET.ER (FP) PO SCH ×2 (10:59→22:30)
[2016-06-03] MEDS: RANITIDINE HCL 150 MG TABLET (FP) PO SCH ×2 (10:59→22:31)
[2016-06-03] MEDS: ALBUTEROL SO4 6.7 GM HFA INHALER IH PRN (11:03)
--- NOTE | 2016-06-03 11:09 | PN ---
[facility] CIWA - CIWA Score Nausea/Vomitin-No Nausea/No Vomiting Muscle Tremors: 4-Moderate,w/Arms Extend Anxiety: 4-Mod. Anxious/Guarded Agitation: 4-Moderately Restless Paroxysmal Sweats: 1-Minimal Palms Moist Orientation: 0-Oriented Tacttile Disturbances: 3-Moderate Itch/Numb/Burn Auditory Disturbances: 0-None Visual Disturbances: 0-None Headache: 0-None Present CIWA-Ar Total Score: 16 S Progress Note (SOAP) Subjective: ANXIETY,TREMORS,EYE IRRITATION--CURRENT MED NOT EFFECTIVE. USES VISINE-ALLERGY. Objective: 06/03/16 11:07 Vital Signs Temperature 96.3 F L 06/03/16 10:03 Pulse Rate 109 H 06/03/16 10:03 Respiratory Rate 18 06/03/16 10:03 Blood Pressure 135/83 06/03/16 10:03 O2 Sat by Pulse Oximetry (%) Laboratory Last Values WBC 4.0 K/mm3 (4.0-10.0) 06/02/16 07:50 RBC 4.57 M/mm3 (4.00-5.60) 06/02/16 07:50 Hgb 14.9 GM/dL (11.7-16.9) 06/02/16 07:50 Hct 45.7 % (35.4-49) 06/02/16 07:50 MCV 100.1 fl (80-96) H 06/02/16 07:50 MCHC 32.6 g/dl (32.0-35.9) 06/02/16 07:50 RDW 17.4 % (11.9-15.9) H D 06/02/16 07:50 Plt Count 91 K/MM3 (134-434) L 06/02/16 07:50 MPV 8.0 fl (7.5-11.1) 06/02/16 07:50 Sodium 142 mmol/L (136-145) 06/02/16 07:50 Potassium 2.3 mmol/L (3.5-5.1) L* D 06/02/16 07:50 Chloride 95 mmol/L (98-107) L 06/02/16 07:50 Carbon Dioxide 34 mmol/L (21-32) H 06/02/16 07:50 Anion Gap 13 (8-16) 06/02/16 07:50 BUN 6 mg/dL (7-18) L D 06/02/16 07:50 Creatinine 0.7 mg/dL (0.7-1.3) 06/02/16 07:50 Creat Clearance w eGFR > 60 (>60) 06/02/16 07:50 Random Glucose 85 mg/dL (74-106) 06/02/16 07:50 Calcium 7.7 mg/dL (8.5-10.1) L 06/02/16 07:50 Total Bilirubin 0.7 mg/dL (0.2-1.0) 06/02/16 07:50 AST 74 U/L (15-37) H D 06/02/16 07:50 ALT 25 U/L (12-78) D 06/02/16 07:50 Alkaline Phosphatase 87 U/L (45-117) 06/02/16 07:50 Total Protein 7.0 g/dl (6.4-8.2) 06/02/16 07:50 Albumin 3.1 g/dl (3.4-5.0) L 06/02/16 07:50 Urine Color Jenny 06/02/16 11:00 Urine Appearance Clear 06/02/16 11:00 Urine pH 6.0 (5.0-8.0) 06/02/16 11:00 Ur Specific [place] 1.021 (1.001-1.035) 06/02/16 11:00 Urine Protein 1+ (NEGATIVE) H 06/02/16 11:00 Urine Glucose (UA) 1+ (NEGATIVE) H 06/02/16 11:00 Urine Ketones Negative (NEGATIVE) 06/02/16 11:00 Urine Blood 1+ (NEGATIVE) H 06/02/16 11:00 Urine Nitrite Negative (NEGATIVE) 06/02/16 11:00 Urine Bilirubin Negative (NEGATIVE) 06/02/16 11:00 Urine Urobilinogen 4.0 e.u/dl E.U./dl (0.2-1.0) 06/02/16 11:00 Ur Leukocyte Esterase Negative (NEGATIVE) 06/02/16 11:00 Urine RBC 2 /hpf (0-3) 06/02/16 11:00 Urine WBC 7 /hpf (3-5) 06/02/16 11:00 Hyaline Casts 18 /lpf 06/02/16 11:00 Urine Mucus Many 06/02/16 11:00 RPR Titer Nonreactive (NONREACTIVE) 06/02/16 07:50 LABS NOTED Assessment: 06/03/16 11:08 WITHDRAWAL SX Plan: CONTINUE DETOX [facility] STARTED REPEAT LABS ON 06/04/16
[2016-06-03] MEDS: NAPHAZOLINE/PHENIRAMINE OPHTHALMIC 15 ML BOTTLE OU SCH ×3 (14:17→22:32)
[2016-06-03] MEDS: THIAMINE HCL 100 MG TABLET (FP) PO SCH (22:30)
[2016-06-03] MEDS: chlordiazePOXIDE 5 MG CAPSULE PO SCH (22:31)
[2016-06-04] MEDS: chlordiazePOXIDE 5 MG CAPSULE PO SCH ×3 (06:24→17:15)
[2016-06-04 09:31] LABS: MCH 32.9 pg (25.7-33.7); MCHC 32.4 g/dl (32.0-35.9); MEAN CELL VOLUME 101.4 fl (80-96); MEAN PLT VOLUME 8.6 fl (7.5-11.1); PLATELET COUNT 84 K/MM3 (134-434); RDW 18.3 % (11.9-15.9); WHITE BLOOD COUNT 3.7 K/mm3 (4.0-10.0)
[2016-06-04 09:46] LABS: ALBUMIN 3.2 g/dl (3.4-5.0); ANION GAP 10 (8-16); CALCIUM 8.9 mg/dL (8.5-10.1); CO2 31 mmol/L (21-32); CREATININE 0.7 mg/dL (0.7-1.3); GLUCOSE,RANDOM 103 mg/dL (74-106); SGOT/AST 46 U/L (15-37); SGPT/ALT 23 U/L (12-78)
[2016-06-04 09:48] LABS: ALK PHOS 87 U/L (45-117); BILIRUBIN,TOTAL 0.9 mg/dL (0.2-1.0); TOT PROT 6.9 g/dl (6.4-8.2)
[2016-06-04] MEDS: BUDESONIDE/FORMETEROL FUMARATE 80/4.5 mcg INHALER IH SCH ×2 (10:43→22:55)
[2016-06-04] MEDS: POTASSIUM CHLORIDE TABS 20 MEQ TABLET.ER (FP) PO SCH ×2 (10:44→22:56)
[2016-06-04] MEDS: NAPHAZOLINE/PHENIRAMINE OPHTHALMIC 15 ML BOTTLE OU SCH ×4 (10:44→23:01)
[2016-06-04] MEDS: RANITIDINE HCL 150 MG TABLET (FP) PO SCH ×2 (10:44→22:56)
[2016-06-04] MEDS: PRENATAL VITAMINS W/ FOLIC ACID TABLET (FP) PO SCH (10:44)
[2016-06-04] MEDS: ALBUTEROL SO4 6.7 GM HFA INHALER IH PRN (10:44)
[2016-06-04] MEDS: PARoxetine HCL 10 MG TABLET (FP) PO SCH (10:44)
--- NOTE | 2016-06-04 11:06 | PN ---
BHS Progress Note (SOAP) Subjective: ANXIETY,TREMORS,FATIGUE. Objective: 06/04/16 11:05 Vital Signs Temperature 95.7 F L 06/04/16 10:49 Pulse Rate 100 H 06/04/16 10:49 Respiratory Rate 18 06/04/16 10:49 Blood Pressure 122/91 06/04/16 10:49 O2 Sat by Pulse Oximetry (%) Assessment: 06/04/16 11:05 WITHDRAWAL SX Plan: CONTINUE DETOX
[2016-06-04] MEDS: THIAMINE HCL 100 MG TABLET (FP) PO SCH (22:56)
[2016-06-04] MEDS: chlordiazePOXIDE HCL 10 MG CAPSULE PO SCH (22:59)
[2016-06-05] MEDS: chlordiazePOXIDE HCL 10 MG CAPSULE PO SCH ×2 (06:12→10:25)
[2016-06-05] MEDS: POTASSIUM CHLORIDE TABS 20 MEQ TABLET.ER (FP) PO SCH (09:47)
[2016-06-05] MEDS: BUDESONIDE/FORMETEROL FUMARATE 80/4.5 mcg INHALER IH SCH (09:48)
[2016-06-05] MEDS: PRENATAL VITAMINS W/ FOLIC ACID TABLET (FP) PO SCH (09:48)
[2016-06-05] MEDS: PARoxetine HCL 10 MG TABLET (FP) PO SCH (09:48)
[2016-06-05] MEDS: NAPHAZOLINE/PHENIRAMINE OPHTHALMIC 15 ML BOTTLE OU SCH (09:48)
[2016-06-05] MEDS: RANITIDINE HCL 150 MG TABLET (FP) PO SCH (09:49)
[2016-06-05 09:53] VITALS: BP 121/78; PULSE 101; TEMP 96.2
--- NOTE | 2016-06-05 13:00 | PN ---
BHS Progress Note (SOAP) Subjective: Reports feeling better, interrupted sleep, restlessness Objective: Vital Signs Temperature 96.2 F L 06/05/16 09:53 Pulse Rate 101 H 06/05/16 09:53 Respiratory Rate 20 06/05/16 09:53 Blood Pressure 121/78 06/05/16 09:53 O2 Sat by Pulse Oximetry (%) Laboratory Last Values WBC 3.7 K/mm3 (4.0-10.0) L 06/04/16 06:20 RBC 4.57 M/mm3 (4.00-5.60) 06/04/16 06:20 Hgb 15.0 GM/dL (11.7-16.9) 06/04/16 06:20 Hct 46.3 % (35.4-49) 06/04/16 06:20 MCV 101.4 fl (80-96) H 06/04/16 06:20 MCHC 32.4 g/dl (32.0-35.9) 06/04/16 06:20 RDW 18.3 % (11.9-15.9) H 06/04/16 06:20 Plt Count 84 K/MM3 (134-434) L 06/04/16 06:20 MPV 8.6 fl (7.5-11.1) 06/04/16 06:20 Sodium 142 mmol/L (136-145) 06/04/16 06:20 Potassium 3.3 mmol/L (3.5-5.1) L D 06/04/16 06:20 Chloride 101 mmol/L (98-107) 06/04/16 06:20 Carbon Dioxide 31 mmol/L (21-32) 06/04/16 06:20 Anion Gap 10 (8-16) 06/04/16 06:20 BUN 5 mg/dL (7-18) L 06/04/16 06:20 Creatinine 0.7 mg/dL (0.7-1.3) 06/04/16 06:20 Creat Clearance w eGFR > 60 (>60) 06/04/16 06:20 Random Glucose 103 mg/dL (74-106) D 06/04/16 06:20 Calcium 8.9 mg/dL (8.5-10.1) 06/04/16 06:20 Total Bilirubin 0.9 mg/dL (0.2-1.0) D 06/04/16 06:20 AST 46 U/L (15-37) H D 06/04/16 06:20 ALT 23 U/L (12-78) 06/04/16 06:20 Alkaline Phosphatase 87 U/L (45-117) 06/04/16 06:20 Total Protein 6.9 g/dl (6.4-8.2) 06/04/16 06:20 Albumin 3.2 g/dl (3.4-5.0) L 06/04/16 06:20 Urine Color Jenny 06/02/16 11:00 Urine Appearance Clear 06/02/16 11:00 Urine pH 6.0 (5.0-8.0) 06/02/16 11:00 Ur Specific [place] 1.021 (1.001-1.035) 06/02/16 11:00 Urine Protein 1+ (NEGATIVE) H 06/02/16 11:00 Urine Glucose (UA) 1+ (NEGATIVE) H 06/02/16 11:00 Urine Ketones Negative (NEGATIVE) 06/02/16 11:00 Urine Blood 1+ (NEGATIVE) H 06/02/16 11:00 Urine Nitrite Negative (NEGATIVE) 06/02/16 11:00 Urine Bilirubin Negative (NEGATIVE) 06/02/16 11:00 Urine Urobilinogen 4.0 e.u/dl E.U./dl (0.2-1.0) 06/02/16 11:00 Ur Leukocyte Esterase Negative (NEGATIVE) 06/02/16 11:00 Urine RBC 2 /hpf (0-3) 06/02/16 11:00 Urine WBC 7 /hpf (3-5) 06/02/16 11:00 Hyaline Casts 18 /lpf 06/02/16 11:00 Urine Mucus Many 06/02/16 11:00 RPR Titer Nonreactive (NONREACTIVE) 06/02/16 07:50 Labs and vitals noted Assessment: withdrawal symptoms Plan: Continue Detox
--- NOTE | 2016-06-05 14:15 | DS ---
[facility] Detox Discharge Summary Admission Date: 06/01/16 Discharge Date: 06/05/16 - History Present History: Alcohol Dependence Pertinent Past History: gerd asthma - Physical Exam Results Vital Signs: Vital Signs Temperature 96.2 F L 06/05/16 09:53 Pulse Rate 101 H 06/05/16 09:53 Respiratory Rate 20 06/05/16 09:53 Blood Pressure 121/78 06/05/16 09:53 O2 Sat by Pulse Oximetry (%) Pertinent Admission Physical Exam Findings: withdrawal sx. Laboratory Last Values WBC 3.7 K/mm3 (4.0-10.0) L 06/04/16 06:20 RBC 4.57 M/mm3 (4.00-5.60) 06/04/16 06:20 Hgb 15.0 GM/dL (11.7-16.9) 06/04/16 06:20 Hct 46.3 % (35.4-49) 06/04/16 06:20 MCV 101.4 fl (80-96) H 06/04/16 06:20 MCHC 32.4 g/dl (32.0-35.9) 06/04/16 06:20 RDW 18.3 % (11.9-15.9) H 06/04/16 06:20 Plt Count 84 K/MM3 (134-434) L 06/04/16 06:20 MPV 8.6 fl (7.5-11.1) 06/04/16 06:20 Sodium 142 mmol/L (136-145) 06/04/16 06:20 Potassium 3.3 mmol/L (3.5-5.1) L D 06/04/16 06:20 Chloride 101 mmol/L (98-107) 06/04/16 06:20 Carbon Dioxide 31 mmol/L (21-32) 06/04/16 06:20 Anion Gap 10 (8-16) 06/04/16 06:20 BUN 5 mg/dL (7-18) L 06/04/16 06:20 Creatinine 0.7 mg/dL (0.7-1.3) 06/04/16 06:20 Creat Clearance w eGFR > 60 (>60) 06/04/16 06:20 Random Glucose 103 mg/dL (74-106) D 06/04/16 06:20 Calcium 8.9 mg/dL (8.5-10.1) 06/04/16 06:20 Total Bilirubin 0.9 mg/dL (0.2-1.0) D 06/04/16 06:20 AST 46 U/L (15-37) H D 06/04/16 06:20 ALT 23 U/L (12-78) 06/04/16 06:20 Alkaline Phosphatase 87 U/L (45-117) 06/04/16 06:20 Total Protein 6.9 g/dl (6.4-8.2) 06/04/16 06:20 Albumin 3.2 g/dl (3.4-5.0) L 06/04/16 06:20 Urine Color Jenny 06/02/16 11:00 Urine Appearance Clear 06/02/16 11:00 Urine pH 6.0 (5.0-8.0) 06/02/16 11:00 Ur Specific [place] 1.021 (1.001-1.035) 06/02/16 11:00 Urine Protein 1+ (NEGATIVE) H 06/02/16 11:00 Urine Glucose (UA) 1+ (NEGATIVE) H 06/02/16 11:00 Urine Ketones Negative (NEGATIVE) 06/02/16 11:00 Urine Blood 1+ (NEGATIVE) H 06/02/16 11:00 Urine Nitrite Negative (NEGATIVE) 06/02/16 11:00 Urine Bilirubin Negative (NEGATIVE) 06/02/16 11:00 Urine Urobilinogen 4.0 e.u/dl E.U./dl (0.2-1.0) 06/02/16 11:00 Ur Leukocyte Esterase Negative (NEGATIVE) 06/02/16 11:00 Urine RBC 2 /hpf (0-3) 06/02/16 11:00 Urine WBC 7 /hpf (3-5) 06/02/16 11:00 Hyaline Casts 18 /lpf 06/02/16 11:00 Urine Mucus Many 06/02/16 11:00 RPR Titer Nonreactive (NONREACTIVE) 06/02/16 07:50 labs noted K+ replacement given - Treatment Hospital Course: Detox Protocol Followed, Detoxed Safely, Responded well, Discharged Condition Good Patient has Accepted a Rehab Referral to: Pt. will attend self help groups, F/U with neurology professor & Psychiatrist - Medication Discharge Medications: Ambulatory Orders Paroxetine HCl [Paxil -] 20 mg PO DAILY #30 tablet 04/30/15 Albuterol Sulfate Inhaler - [Ventolin HFA Inhaler -] 2 inh PO Q4H PRN #1 cartridge 04/16/16 Budesonide/Formeterol Fumarate [SYMBICORT 80/4.5mcg -] 2 inh IH BID #1 canister 04/16/16 Tetrahydrozoline HCl/Zn Sulf [Visine Allergy Relief Drop] 2 drop AU PRN PRN #1 drops 04/16/16 Paroxetine HCl [Paxil -] 10 mg PO DAILY #30 tablet 06/02/16 - Diagnosis (1) Alcohol dependence with uncomplicated withdrawal Status: Acute (2) Bronchial asthma Status: Chronic Qualifiers: Asthma severity: mild persistent Asthma complication type: uncomplicated Qualified Code(s): J45.30 - Mild persistent asthma, uncomplicated (3) GERD (gastroesophageal reflux disease) Status: Chronic Qualifiers: Esophagitis presence: without esophagitis Qualified Code(s): K21.9 - Gastro-esophageal reflux disease without esophagitis (4) MDD (major depressive disorder) Status: Chronic Qualifiers: Major depression episode severity: unspecified - AMA Did Patient Leave Against Medical Advice: No
== END 2016-06-05 10:50 | disposition home or self-care (01) | DRG 897 ==
LOC: YASAS 18:31 → Y3N 20:04
PROVIDERS: ADMIT Internal Medicine; ATTEND Internal Medicine
PROC: HZ2ZZZZ Detoxification Services for Substance Abuse Treatment (ICD-10-PCS; principal; 2016-06-01)
DX: F10.230 Alcohol dependence with withdrawal, uncomplicated (principal); F33.9 Major depressive disorder, recurrent, unspecified; F34.1 Dysthymic disorder; J45.30 Mild persistent asthma, uncomplicated; K21.9 Gastro-esophageal reflux disease without esophagitis; R00.0 Tachycardia, unspecified; Z86.69 Personal history of other diseases of the nervous system and sense organs; Z87.891 Personal history of nicotine dependence
CPT/HCPCS: 36415; 80053; 81003; 81015; 85027; 86593; 93005; 93010

== ENCOUNTER 2016-07-25 12:04 | Inpatient (IN) | payer OTHER ==
[2016-07-25 12:58] VITALS: BMI 23.0
--- NOTE | 2016-07-25 16:32 | HP ---
CIWA Score - CIWA Score Nausea/Vomitin Muscle Tremors: 3 Anxiety: 3 Agitation: 3 Paroxysmal Sweats: 2 Orientation: 0-Oriented Tacttile Disturbances: 2-Mild Itch/Numbness/Burn Auditory Disturbances: 2-Mild Harshness/Frighten Visual Disturbances: 2-Mild Sensitivity Headache: 2-Mild CIWA-Ar Total Score: 22 Admission ROS BHS - HPI Chief Complaint: i need help to stop drinking alcohol Allergies/Adverse Reactions: Allergies Allergy/AdvReac Type Severity Reaction Status Date / Time No Known Allergies Allergy Verified 07/25/16 15:13 History of Present Illness: this70 years old male with alcohol dependence,withdrawal symptom,last detox to 06/05/16 syncope alcohol related seizure last 30 years ago asthma longest period sobriety 13 years Exam Limitations: No Limitations - Ebola screening Have you traveled outside of the country in the last 21 days: No Have you had contact with anyone from an Ebola affected area: No Have you been sick,other than usual withdrawal symptoms: No Do you have a fever: No - Review of Systems Constitutional: Loss of Appetite, Night Sweats, Changes in sleep, Weakness EENT: reports: Nose Congestion Respiratory: reports: No Symptoms reported Cardiac: reports: Palpitations GI: reports: Diarrhea, Nausea, Vomiting, Abdominal cramping : reports: No Symptoms Reported Musculoskeletal: reports: Back Pain, Muscle Pain Integumentary: reports: Dryness Neuro: reports: Headache, Tremors Endocrine: reports: No Symptoms Reported Hematology: reports: No Symptoms Reported Psychiatric: reports: No Sypmtoms Reported, Judgement Intact, Mood/Affect Appropiate, Depressed Patient History - Patient Medical History Hx Anemia: No Hx Asthma: Yes (on albuterol inhaler) Hx Chronic Obstructive Pulmonary Disease (COPD): No Hx Cancer: No Hx Cardiac Disorders: No Hx Congestive Heart Failure: No Hx Hypertension: No Hx Hypercholesterolemia: No Hx Pacemaker: No HX Cerebrovascular Accident: No Hx Seizures: Yes (last 30 years ago) Hx Dementia: No Hx Diabetes: No Hx Gastrointestinal Disorders: No Hx Liver Disease: No Hx Genitourinary Disorders: No Hx Sexually Transmitted Disorders: No Hx Renal Disease (ESRD): No Hx Thyroid Disease: No Hx Human Immunodeficiency Virus (HIV): No (NEGATIVE YEARS AGO ) Hx Hepatitis C: No Hx Depression: Yes Hx Suicide Attempt: No Hx Bipolar Disorder: No Hx Schizophrenia: No Other Medical History: no suicidal,no homicidal - Patient Surgical History Past Surgical History: Yes Hx Neurologic Surgery: No Hx Cataract Extraction: No Hx Cardiac Surgery: No Hx Lung Surgery: No Hx Breast Surgery: No Hx Breast Biopsy: No Hx Abdominal Surgery: Yes (HERNIA REPAIR RIGHT) Hx Appendectomy: Yes (30 years go) Hx Cholecystectomy: No Hx Genitourinary Surgery: No Hx Section: No Hx Orthopedic Surgery: No Anesthesia Reaction: No - PPD History Previous Implant?: Yes Documented Results: Negative w/proof Implanted On Prior [facility] Admission?: Yes Date: 06/03/16 Results: 0mm PPD to be Administered?: No - Smoking Cessation Smoking history: Never smoked Have you smoked in the past 12 months: No Aproximately how many cigarettes per day: 0 Cigars Per Day: 0 Hx Chewing Tobacco Use: No - Substance & Tx. History Hx Alcohol Use: Yes Hx Substance Use: No Substance Use Type: Alcohol Hx Substance Use Treatment: Yes ([facility] 06/01/16 to 06/05/16) - Substances Abused Alcohol Route: Oral Frequency: Daily Amount used: vodka(1 pint) Age of first use: 14 Date of Last Use: 07/25/16 Family Disease History - Family Disease History Family Disease History: Heart Disease: Father (), Other: Grandparent ( UNCLE ), Mother (), Brother (ALCOHOL ) Admission Physical Exam S - Vital Signs Vital Signs: Vital Signs - 24 hr 07/25/16 12:56 Temperature 97.0 F L Pulse Rate 118 H Respiratory 20 Rate Blood Pressure 126/87 - Physical General Appearance: Yes: Moderate Distress, Intoxicated, Tremorous, Irritable, Sweating, Anxious HEENTM: Yes: Normal ENT Inspection, [place], Pharynx Normal Respiratory: Yes: Lungs Clear, Normal Breath Sounds, No Respiratory Distress Neck: Yes: Within Normal Limits Breast: Yes: Within Normal Limits Cardiology: Yes: Tachycardia Abdominal: Yes: Within Normal Limits, Normal Bowel Sounds, Non Tender, Flat, Soft Genitourinary: Yes: Within Normal Limits Back: Yes: Muscle Spasm Musculoskeletal: Yes: Back pain, Muscle Pain Extremities: Yes: Within Normal Limits, Normal Range of Motion, Tremors 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 NML intact, Fully Oriented, Alert, Motor Strength 5/5 Integumentary: Yes: Dry Lymphatic: Yes: Within Normal Limits - Diagnostic (1) Alcohol dependence with uncomplicated withdrawal Current Visit: No Status: Acute (2) Syncope Current Visit: No Status: Acute (3) Weight loss Current Visit: No Status: Acute (4) Alcohol dependence with uncomplicated intoxication Current Visit: No Status: Chronic (5) Arthritis Current Visit: No Status: Chronic (6) Bronchial asthma Current Visit: No Status: Chronic Qualifiers: Asthma severity: mild persistent Asthma complication type: uncomplicated Qualified Code(s): J45.30 - Mild persistent asthma, uncomplicated (7) GERD (gastroesophageal reflux disease) Current Visit: No Status: Chronic Qualifiers: Esophagitis presence: without esophagitis Qualified Code(s): K21.9 - Gastro-esophageal reflux disease without esophagitis (8) History of appendectomy Current Visit: No Status: Chronic (9) History of hernia repair Current Visit: No Status: Chronic (10) Depression Current Visit: No Status: Suspected Qualifiers: Depression Type: dysthymia Qualified Code(s): F34.1 - Dysthymic disorder Comment: "MY FIVE YEARS AGO" TEARFUL Cleared for Admission S - Detox or Rehab [facility] Level of Care: Medically Managed Detox Regimen/Protocol: [facility] Breath Alcohol Content Breath Alcohol Content: 0.227 Urine Drug Screen - Results Drug Screen Negative: Yes
[2016-07-25] MEDS ORDERED: IBUPROFEN 400 MG TABLET (FP) PO PRN (16:40)
[2016-07-25] MEDS ORDERED: MAGNESIUM HYDROX 2400MG/30ML ORAL SUSPENSION 30 ML CUP PO PRN (16:40)
[2016-07-25] MEDS ORDERED: guaiFENesin/D-METHORPHAN HB 10 ML UNIT-DOSE CUPS PO PRN (16:40)
[2016-07-25] MEDS ORDERED: MAG HYDROX/AL HYDROX/SIMETH 30 ML UNIT-DOSE CUP PO PRN (16:40)
[2016-07-25] MEDS ORDERED: chlordiazePOXIDE HCL 25 MG CAPSULE PO PRN (16:40)
[2016-07-25] MEDS ORDERED: MAGNESIUM CITRATE 300 ML BOTTLE PO PRN (16:40)
[2016-07-25] MEDS ORDERED: chlordiazePOXIDE HCL 25 MG CAPSULE PO ONE (16:40)
[2016-07-25] MEDS ORDERED: MENTHOL/PHENOL 1 EACH UD MM PRN (16:40)
[2016-07-25] MEDS ORDERED: LOPERAMIDE HCL 2 MG CAPSULE PO PRN (16:40)
[2016-07-25] MEDS ORDERED: P-EPHED 60MG/TRIPROLIDI 2.5MG TABLET PO PRN (16:40)
[2016-07-25] MEDS ORDERED: diphenhydrAMINE HCL 50 MG CAPSULE PO PRN (16:40)
[2016-07-25] MEDS ORDERED: hydrOXYzine PAMOATE 25 MG CAPSULE (FP) PO PRN (16:40)
[2016-07-25] MEDS ORDERED: ACETAMINOPHEN 325 MG TABLET (FP) PO PRN (16:40)
[2016-07-25] MEDS ORDERED: ALBUTEROL SO4 6.7 GM HFA INHALER IH PRN (16:42)
[2016-07-25] MEDS: chlordiazePOXIDE HCL 25 MG CAPSULE PO SCH (22:51)
[2016-07-25] MEDS: THIAMINE HCL 100 MG TABLET (FP) PO SCH (22:52)
[2016-07-25] MEDS: BUDESONIDE/FORMETEROL FUMARATE 80/4.5 mcg INHALER IH SCH (22:55)
[2016-07-26] MEDS: chlordiazePOXIDE HCL 25 MG CAPSULE PO SCH ×4 (06:18→22:56)
--- NOTE | 2016-07-26 08:43 | EKG ---
Test Reason : Blood Pressure : / mmHG Vent. Rate : 105 BPM Atrial Rate : 105 BPM P-R Int : 138 ms QRS Dur : 082 ms QT Int : 364 ms P-R-T Axes : 042 010 064 degrees QTc Int : 481 ms POOR DATA QUALITY, INTERPRETATION MAY BE ADVERSELY AFFECTED SINUS TACHYCARDIA SEPTAL INFARCT (CITED ON OR BEFORE 01-JUN-2016) ABNORMAL ECG WHEN COMPARED WITH ECG OF 01-JUN-2016 21:52, COMPARED TO EKG NO SIGNIFICANT CHANGE IS FOUND Confirmed by MIKKI DAVIES MD ([id number]) on 07/26/2016 8:43:22 AM Referred By: Zan Holder Confirmed By:MIKKI DAVIES MD
[2016-07-26 10:14] LABS: URINE APPEARANCE CLEAR; URINE BILIRUBIN NEGATIVE (NEGATIVE); URINE COLOR AMBER; URINE GLUCOSE (UA) NEGATIVE (NEGATIVE); URINE KETONE TRACE (NEGATIVE); URINE LEUK ESTERASE NEGATIVE (NEGATIVE); URINE NITRITE NEGATIVE (NEGATIVE); URINE UROBILINOGEN 4.0 E.U/dl E.U./dl (0.2-1.0)
[2016-07-26 10:18] LABS: MCH 33.1 pg (25.7-33.7); MCHC 33.2 g/dl (32.0-35.9); MEAN CELL VOLUME 99.6 fl (80-96); MEAN PLT VOLUME 8.6 fl (7.5-11.1); PLATELET COUNT 95 K/MM3 (134-434); RDW 16.5 % (11.9-15.9)
[2016-07-26 10:21] LABS: ALBUMIN 3.7 g/dl (3.4-5.0); ANION GAP 9 (8-16); CALCIUM 8.5 mg/dL (8.5-10.1); CO2 36 mmol/L (21-32); GLUCOSE,RANDOM 159 mg/dL (74-106); SGOT/AST 48 U/L (15-37); SGPT/ALT 27 U/L (12-78); URINE BLOOD 2+ (NEGATIVE); URINE PROTEIN 1+ (NEGATIVE)
[2016-07-26 10:24] LABS: ALK PHOS 91 U/L (45-117); BILIRUBIN,TOTAL 1.1 mg/dL (0.2-1.0); COCKROFT - GAULT 78.71; CREATININE 0.8 mg/dL (0.7-1.3); TOT PROT 7.7 g/dl (6.4-8.2)
[2016-07-26] MEDS: PRENATAL VITAMINS W/ FOLIC ACID TABLET (FP) PO SCH (10:31)
[2016-07-26] MEDS: BUDESONIDE/FORMETEROL FUMARATE 80/4.5 mcg INHALER IH SCH ×2 (10:31→22:57)
[2016-07-26 10:49] LABS: URINE HYALINE CAST 4 /lpf; URINE MUCUS MANY; URINE RBC 4 /hpf (0-3); URINE WBC 10 /hpf (3-5)
--- NOTE | 2016-07-26 10:54 | PN ---
[facility] CIWA - CIWA Score Nausea/Vomitin Muscle Tremors: 3 Anxiety: 3 Agitation: 2 Paroxysmal Sweats: 1-Minimal Palms Moist Orientation: 0-Oriented Tacttile Disturbances: 1-Very Mild Itch/Numbness Auditory Disturbances: 1-Very Mild Visual Disturbances: 1-Very Mild Sensitivity Headache: 2-Mild CIWA-Ar Total Score: 17 BHS Progress Note (SOAP) Subjective: ALERT,IRRITABLE,ANXIOUS,INTERRUPTED SLEEP,TREMOR Objective: 07/26/16 10:49 Vital Signs Temperature 98.1 F 07/26/16 06:00 Pulse Rate 109 H 07/26/16 06:00 Respiratory Rate 18 07/26/16 06:00 Blood Pressure 120/68 07/26/16 06:00 O2 Sat by Pulse Oximetry (%) EKG SINUS TACHYCARDIA 108/MIN NO CHEST PAIN,NO SOB,NO DIZZINESS Laboratory Last Values WBC 4.0 K/mm3 (4.0-10.0) 07/26/16 07:00 RBC 4.67 M/mm3 (4.00-5.60) 07/26/16 07:00 Hgb 15.4 GM/dL (11.7-16.9) 07/26/16 07:00 Hct 46.5 % (35.4-49) 07/26/16 07:00 MCV 99.6 fl (80-96) H 07/26/16 07:00 MCHC 33.2 g/dl (32.0-35.9) 07/26/16 07:00 RDW 16.5 % (11.9-15.9) H 07/26/16 07:00 Plt Count 95 K/MM3 (134-434) L 07/26/16 07:00 MPV 8.6 fl (7.5-11.1) 07/26/16 07:00 Urine Color Jenny 07/26/16 07:00 Urine Appearance Clear 07/26/16 07:00 Urine pH 6.0 (5.0-8.0) 07/26/16 07:00 Ur Specific [place] 1.023 (1.001-1.035) 07/26/16 07:00 Urine Protein 1+ (NEGATIVE) H 07/26/16 07:00 Urine Glucose (UA) Negative (NEGATIVE) 07/26/16 07:00 Urine Ketones Trace (NEGATIVE) H 07/26/16 07:00 Urine Blood 2+ (NEGATIVE) H 07/26/16 07:00 Urine Nitrite Negative (NEGATIVE) 07/26/16 07:00 Urine Bilirubin Negative (NEGATIVE) 07/26/16 07:00 Urine Urobilinogen 4.0 e.u/dl E.U./dl (0.2-1.0) 07/26/16 07:00 Ur Leukocyte Esterase Negative (NEGATIVE) 07/26/16 07:00 LABS PENDING Assessment: 07/26/16 10:52 WITHDRAWAL SYMPTOM Plan: CONTINUE DETOX
--- NOTE | 2016-07-26 11:04 | PN ---
[facility] Progress Note Note: Laboratory Last Values WBC 4.0 K/mm3 (4.0-10.0) 07/26/16 07:00 RBC 4.67 M/mm3 (4.00-5.60) 07/26/16 07:00 Hgb 15.4 GM/dL (11.7-16.9) 07/26/16 07:00 Hct 46.5 % (35.4-49) 07/26/16 07:00 MCV 99.6 fl (80-96) H 07/26/16 07:00 MCHC 33.2 g/dl (32.0-35.9) 07/26/16 07:00 RDW 16.5 % (11.9-15.9) H 07/26/16 07:00 Plt Count 95 K/MM3 (134-434) L 07/26/16 07:00 MPV 8.6 fl (7.5-11.1) 07/26/16 07:00 Sodium 136 mmol/L (136-145) 07/26/16 07:00 Potassium 2.9 mmol/L (3.5-5.1) L* 07/26/16 07:00 Chloride 91 mmol/L (98-107) L 07/26/16 07:00 Carbon Dioxide 36 mmol/L (21-32) H 07/26/16 07:00 Anion Gap 9 (8-16) 07/26/16 07:00 BUN 10 mg/dL (7-18) D 07/26/16 07:00 Creatinine 0.8 mg/dL (0.7-1.3) 07/26/16 07:00 Creat Clearance w eGFR > 60 (>60) 07/26/16 07:00 Random Glucose 159 mg/dL (74-106) H D 07/26/16 07:00 Calcium 8.5 mg/dL (8.5-10.1) 07/26/16 07:00 Total Bilirubin 1.1 mg/dL (0.2-1.0) H D 07/26/16 07:00 AST 48 U/L (15-37) H 07/26/16 07:00 ALT 27 U/L (12-78) 07/26/16 07:00 Alkaline Phosphatase 91 U/L (45-117) 07/26/16 07:00 Total Protein 7.7 g/dl (6.4-8.2) 07/26/16 07:00 Albumin 3.7 g/dl (3.4-5.0) 07/26/16 07:00 Urine Color Jenny 07/26/16 07:00 Urine Appearance Clear 07/26/16 07:00 Urine pH 6.0 (5.0-8.0) 07/26/16 07:00 Ur Specific [place] 1.023 (1.001-1.035) 07/26/16 07:00 Urine Protein 1+ (NEGATIVE) H 07/26/16 07:00 Urine Glucose (UA) Negative (NEGATIVE) 07/26/16 07:00 Urine Ketones Trace (NEGATIVE) H 07/26/16 07:00 Urine Blood 2+ (NEGATIVE) H 07/26/16 07:00 Urine Nitrite Negative (NEGATIVE) 07/26/16 07:00 Urine Bilirubin Negative (NEGATIVE) 07/26/16 07:00 Urine Urobilinogen 4.0 e.u/dl E.U./dl (0.2-1.0) 07/26/16 07:00 Ur Leukocyte Esterase Negative (NEGATIVE) 07/26/16 07:00 OTHER LABS PENDING K DUR 40 MEQ NOW THEN 20 MEQ PO BID FOR HYPOKALEMIA
--- NOTE | 2016-07-26 11:56 | CONSULT ---
[facility] Psychiatric Consult - Data Date of interview: 07/26/16 Admission source: [facility] Identifying data: This is 70 years old male with no psycvhiatric hospitalization history intoxicated with: Alcohol, history of MDD Substance Abuse History: - Smoking Cessation. Smoking history: Never smoked. Have you smoked in the past 12 months: No. Aproximately how many cigarettes per day: 0. Cigars Per Day: 0. Hx Chewing Tobacco Use: No. - Substance & Tx. History. Hx Alcohol Use: Yes. Hx Substance Use: No. Substance Use Type: Alcohol. Hx Substance Use Treatment: Yes ([facility] 06/01/16 to 06/05/16). - Substances Abused. Alcohol. Route: Oral. Frequency: Daily. Amount used: vodka(1 pint). Age of first use: 14. Date of Last Use: 07/25/16 Medical History: SAyncope history, Asthma, Weight loss history, Arthritis history, HTN, Seizure history Psychiatric History: Patient reports history of depression, as per computer ther5e is a history of MDD, denies suicidal history, reports no medications taking prior to admission Physical/Sexual Abuse/Trauma History: Denies Additional Comment: Observation. Detox Unit Care Protocol Mental Status Exam - Mental Status Exam Alert and Oriented to: Person Patient Appearance: Unkempt Mood: Sad Affect: Flat Patient Behavior: Sedated Speech Pattern: Delayed Voice Loudness: Mildly Soft/Quiet Thought Process: Circumstantial Thought Disorder: Being Controlled Hallucinations: Denies Suicidal Ideation: Denies Homicidal Ideation: Denies Insight/Judgement: Fair Sleep: Difficulty falling asleep Appetite: Weight loss Muscle strength/Tone: Mild Hypotonicity Gait/Station: Shuffling Additional Comments: Observation. Detox Unit Care Protocol Psychiatric Findings - Problem List ([place] 1, 2,3) (1) Alcohol dependence Current Visit: No Status: Active (2) Alcohol dependence with uncomplicated withdrawal Current Visit: No Status: Acute (3) Weight loss Current Visit: No Status: Acute (4) Alcohol dependence with uncomplicated intoxication Current Visit: No Status: Chronic (5) MDD (major depressive disorder) Current Visit: No Status: Chronic Qualifiers: Major depression episode severity: unspecified - Initial Treatment Plan Initial Treatment Plan: Observation. Detox Unit Care Protocol
[2016-07-26] MEDS ORDERED: POTASSIUM CHLORIDE TABS 20 MEQ TABLET.ER (FP) PO ONE (13:30)
[2016-07-26] MEDS: POTASSIUM CHLORIDE TABS 20 MEQ TABLET.ER (FP) PO SCH (18:07)
[2016-07-26] MEDS: THIAMINE HCL 100 MG TABLET (FP) PO SCH (22:56)
[2016-07-27] MEDS: chlordiazePOXIDE HCL 25 MG CAPSULE PO SCH ×3 (06:04→18:30)
--- NOTE | 2016-07-27 10:50 | PN ---
S CIWA - CIWA Score Nausea/Vomitin Muscle Tremors: 3 Anxiety: 3 Agitation: 3 Paroxysmal Sweats: 1-Minimal Palms Moist Orientation: 0-Oriented Tacttile Disturbances: 1-Very Mild Itch/Numbness Auditory Disturbances: 1-Very Mild Visual Disturbances: 1-Very Mild Sensitivity Headache: 2-Mild CIWA-Ar Total Score: 18 [facility] Progress Note (SOAP) Subjective: ALERT,IRRITABLE,ANXIOUS,INTERRUPTED SLEEP,TREMOR Objective: 07/27/16 10:48 07/27/16 10:49 Vital Signs Temperature 96.8 F L 07/27/16 10:00 Pulse Rate 103 H 07/27/16 10:00 Respiratory Rate 16 07/27/16 10:00 Blood Pressure 119/72 07/27/16 10:00 O2 Sat by Pulse Oximetry (%) Assessment: 07/27/16 10:49 WITHDRAWAL SYMPTOM Plan: CONTINUE DETOX,REPEAT CMP IN AM
[2016-07-27] MEDS: PRENATAL VITAMINS W/ FOLIC ACID TABLET (FP) PO SCH (11:00)
[2016-07-27] MEDS: BUDESONIDE/FORMETEROL FUMARATE 80/4.5 mcg INHALER IH SCH ×2 (11:01→22:28)
[2016-07-27] MEDS: POTASSIUM CHLORIDE TABS 20 MEQ TABLET.ER (FP) PO SCH ×2 (11:01→18:30)
--- NOTE | 2016-07-27 11:01 | PN ---
[facility] Progress Note Note: ADDENDUM PATIENT HAS GLAUCOMA BOTH EYES ON XALATHAN 0.005% I GT BOTH EYE HS, ALSO REQUESTED VISIN A BOTH EYES
[2016-07-27] MEDS: NAPHAZOLINE/PHENIRAMINE OPHTHALMIC 15 ML BOTTLE OU SCH ×2 (15:07→22:28)
[2016-07-27] MEDS: chlordiazePOXIDE 5 MG CAPSULE PO SCH (22:26)
[2016-07-27] MEDS: LATANOPROST 0.005% OPHTH SOLN 2.5ML BOTTLE OU SCH (22:28)
[2016-07-27] MEDS: THIAMINE HCL 100 MG TABLET (FP) PO SCH (22:28)
[2016-07-28] MEDS: chlordiazePOXIDE 5 MG CAPSULE PO SCH ×3 (05:48→17:40)
[2016-07-28] MEDS: NAPHAZOLINE/PHENIRAMINE OPHTHALMIC 15 ML BOTTLE OU SCH ×3 (05:49→22:13)
[2016-07-28] MEDS: PRENATAL VITAMINS W/ FOLIC ACID TABLET (FP) PO SCH (10:21)
[2016-07-28] MEDS: BUDESONIDE/FORMETEROL FUMARATE 80/4.5 mcg INHALER IH SCH ×2 (10:21→22:13)
[2016-07-28] MEDS: POTASSIUM CHLORIDE TABS 20 MEQ TABLET.ER (FP) PO SCH ×2 (10:21→17:40)
--- NOTE | 2016-07-28 10:38 | PN ---
S Progress Note (SOAP) Subjective: ALERT,IRRITABLE,ANXIOUS,INTERRUPTED SLEEP,BGM IS 113 Objective: Vital Signs Temperature 97.9 F 07/28/16 05:56 Pulse Rate 74 07/28/16 05:56 Respiratory Rate 18 07/28/16 05:56 Blood Pressure 98/65 07/28/16 05:56 O2 Sat by Pulse Oximetry (%) Assessment: 07/28/16 10:37 WITHDRAWAL SYMPTOM Plan: CONTINUE DETOX,REPEAT UA PENDING,DISCHARGE IN AM
[2016-07-28 11:04] LABS: ALBUMIN 3.7 g/dl (3.4-5.0); ALK PHOS 89 U/L (45-117); ANION GAP 6 (8-16); BILIRUBIN,TOTAL 0.6 mg/dL (0.2-1.0); CALCIUM 9.7 mg/dL (8.5-10.1); CO2 34 mmol/L (21-32); COCKROFT - GAULT 89.96; CREATININE 0.7 mg/dL (0.7-1.3); GLUCOSE,RANDOM 142 mg/dL (74-106); SGOT/AST 44 U/L (15-37); SGPT/ALT 31 U/L (12-78); TOT PROT 7.6 g/dl (6.4-8.2)
[2016-07-28] MEDS: THIAMINE HCL 100 MG TABLET (FP) PO SCH (22:14)
[2016-07-28] MEDS: chlordiazePOXIDE HCL 10 MG CAPSULE PO SCH (22:14)
[2016-07-28] MEDS: LATANOPROST 0.005% OPHTH SOLN 2.5ML BOTTLE OU SCH (22:15)
[2016-07-29] MEDS: chlordiazePOXIDE HCL 10 MG CAPSULE PO SCH ×2 (06:24→11:03)
[2016-07-29] MEDS: NAPHAZOLINE/PHENIRAMINE OPHTHALMIC 15 ML BOTTLE OU SCH (06:25)
[2016-07-29 06:52] VITALS: BP 116/73; PULSE 86; TEMP 97.9
--- NOTE | 2016-07-29 08:56 | PN ---
S Progress Note (SOAP) Subjective: ALERT,NO COMPLAINT Objective: 07/29/16 08:54 Vital Signs Temperature 97.9 F 07/29/16 06:51 Pulse Rate 86 07/29/16 06:51 Respiratory Rate 16 07/29/16 06:51 Blood Pressure 116/73 07/29/16 06:51 O2 Sat by Pulse Oximetry (%) Assessment: 07/29/16 08:55 DETOX COMPLETED,NO WITHDRAWAL SYMPTOM Plan: DISCHARGE TODAY,FOLLOW UP WITH AFTER CARE PROGRAM ARRANGEMENT
--- NOTE | 2016-07-29 09:44 | DS ---
[facility] Detox Discharge Summary Admission Date: 07/25/16 Discharge Date: 07/29/16 - History Present History: Alcohol Dependence, Cocaine Dependence Additional Comments: FOLLOW UP WITH AFTER [facility] PROGRAM ARRANGEMENT AND PMD FOR MEDICAL PROBLEM Pertinent Past History: SYNCOPE ASTHMA GERD DEPRESSION GLAUCOMA BOTH EYES APPENDECTOMY HISTORY RIGHT INGUINAL HERNIA REPAIR DRY EYE - Physical Exam Results Vital Signs: Vital Signs Temperature 97.9 F 07/29/16 06:51 Pulse Rate 86 07/29/16 06:51 Respiratory Rate 16 07/29/16 06:51 Blood Pressure 116/73 07/29/16 06:51 O2 Sat by Pulse Oximetry (%) Pertinent Admission Physical Exam Findings: WITHDRAWAL SYMPTOM - Treatment Hospital Course: Detox Protocol Followed, Detoxed Safely, Responded well, Discharged Condition Good Patient has Accepted a Rehab Referral to: DECL[facility]ED - Medication Discharge Medications: Ambulatory Orders Paroxetine HCl [Paxil -] 20 mg PO DAILY #30 tablet 04/30/15 Albuterol Sulfate Inhaler - [Ventolin HFA Inhaler -] 2 inh PO Q4H PRN #1 cartridge 04/16/16 Budesonide/Formeterol Fumarate [SYMBICORT 80/4.5mcg -] 2 inh IH BID #1 canister 04/16/16 Tetrahydrozoline HCl/Zn Sulf [Visine Allergy Relief Drop] 2 drop AU PRN PRN #1 drops 04/16/16 - Diagnosis (1) Alcohol dependence with uncomplicated withdrawal Current Visit: No Status: Acute (2) Syncope Current Visit: No Status: Acute (3) Weight loss Current Visit: No Status: Acute (4) Alcohol dependence with uncomplicated intoxication Current Visit: No Status: Chronic (5) Arthritis Current Visit: No Status: Chronic (6) Bronchial asthma Current Visit: No Status: Chronic Qualifiers: Asthma severity: mild persistent Asthma complication type: uncomplicated Qualified Code(s): J45.30 - Mild persistent asthma, uncomplicated (7) GERD (gastroesophageal reflux disease) Current Visit: No Status: Chronic Qualifiers: Esophagitis presence: without esophagitis Qualified Code(s): K21.9 - Gastro-esophageal reflux disease without esophagitis (8) History of appendectomy Current Visit: No Status: Chronic (9) History of hernia repair Current Visit: No Status: Chronic (10) Depression Current Visit: No Status: Suspected Qualifiers: Depression Type: dysthymia Qualified Code(s): F34.1 - Dysthymic disorder (11) Hypokalemia Current Visit: Yes Status: Acute - AMA Did Patient Leave Against Medical Advice: No
[2016-07-29] MEDS: PRENATAL VITAMINS W/ FOLIC ACID TABLET (FP) PO SCH (11:02)
[2016-07-29] MEDS: BUDESONIDE/FORMETEROL FUMARATE 80/4.5 mcg INHALER IH SCH (11:03)
[2016-07-29] MEDS: POTASSIUM CHLORIDE TABS 20 MEQ TABLET.ER (FP) PO SCH (11:03)
== END 2016-07-29 11:10 | disposition home or self-care (01) | DRG 897 ==
LOC: YASAS 12:04 → Y6N 15:34
PROVIDERS: ADMIT Internal Medicine; ATTEND Internal Medicine Addiction Medicine
PROC: HZ2ZZZZ Detoxification Services for Substance Abuse Treatment (ICD-10-PCS; principal; 2016-07-29)
DX: F10.230 Alcohol dependence with withdrawal, uncomplicated (principal); F14.20 Cocaine dependence, uncomplicated; F33.9 Major depressive disorder, recurrent, unspecified; F34.1 Dysthymic disorder; E87.5 Hyperkalemia; J45.20 Mild intermittent asthma, uncomplicated; M12.9 Arthropathy, unspecified; K21.9 Gastro-esophageal reflux disease without esophagitis
CPT/HCPCS: 36415; 80053; 81003; 81015; 85027; 86593; 93005; 93010

== ENCOUNTER 2016-09-07 15:53 | Inpatient (IN) | payer OTHER ==
[2016-09-07 17:58] VITALS: BMI 23.1
--- NOTE | 2016-09-07 20:36 | HP ---
CIWA Score - CIWA Score Nausea/Vomitin-Mild Nausea/No Vomiting Muscle Tremors: 4-Moderate,w/Arms Extend Anxiety: 4-Mod. Anxious/Guarded Agitation: 4-Moderately Restless Paroxysmal Sweats: 1-Minimal Palms Moist Orientation: 3-Disoriented Date>2 days Tacttile Disturbances: 0-None Auditory Disturbances: 0-None Visual Disturbances: 0-None Headache: 0-None Present CIWA-Ar Total Score: 17 Admission ROS S - HPI Chief Complaint: WITHDRAWAL SX Allergies/Adverse Reactions: Allergies Allergy/AdvReac Type Severity Reaction Status Date / Time No Known Allergies Allergy Verified 09/07/16 19:38 History of Present Illness: 71 YEARS OLD MALE WITH LONG HISTORY OF ALCOHOL DEPENDENCE HAS WEIGHT LOSS ASTHMA GLAUCOMA AND DEPRESSION IS ADMITTED TO DETOX Exam Limitations: No Limitations - Ebola screening Have you traveled outside of the country in the last 21 days: No Have you had contact with anyone from an Ebola affected area: No Have you been sick,other than usual withdrawal symptoms: No Do you have a fever: No - Review of Systems Constitutional: Chills, Loss of Appetite, Changes in sleep, Unintentional Wgt. Loss, Unexplained wgt Loss EENT: reports: Other (GLAUCOMA BOTH EYES EYE GLASSES) Respiratory: reports: No Symptoms reported Cardiac: reports: No Symptoms Reported GI: reports: Nausea, Poor Appetite, Poor Fluid Intake, Abdominal cramping : reports: No Symptoms Reported Musculoskeletal: reports: No Symptoms Reported Integumentary: reports: No Symptoms Reported Neuro: reports: Seizure (AGE 41 LAST EPISODE), Tremors Endocrine: reports: No Symptoms Reported Hematology: reports: No Symptoms Reported Psychiatric: reports: Judgement Intact, Depressed Other Systems: Reviewed and Negative Patient History - Patient Medical History Hx Anemia: No Hx Asthma: Yes (on albuterol inhaler) Hx Chronic Obstructive Pulmonary Disease (COPD): No Hx Cancer: No Hx Cardiac Disorders: No Hx Congestive Heart Failure: No Hx Hypertension: No Hx Hypercholesterolemia: No Hx Pacemaker: No HX Cerebrovascular Accident: No Hx Seizures: Yes (last 30 years ago) Hx Dementia: No Hx Diabetes: No Hx Gastrointestinal Disorders: No Hx Liver Disease: No Hx Genitourinary Disorders: No Hx Sexually Transmitted Disorders: No Hx Renal Disease (ESRD): No Hx Thyroid Disease: No Hx Human Immunodeficiency Virus (HIV): No (NEGATIVE YEARS AGO ) Hx Hepatitis C: No Hx Depression: Yes Hx Suicide Attempt: No Hx Bipolar Disorder: No Hx Schizophrenia: No - Patient Surgical History Past Surgical History: Yes Hx Neurologic Surgery: No Hx Cataract Extraction: No Hx Cardiac Surgery: No Hx Lung Surgery: No Hx Breast Surgery: No Hx Breast Biopsy: No Hx Abdominal Surgery: Yes (HERNIA REPAIR RIGHT) Hx Appendectomy: Yes (30 years go) Hx Cholecystectomy: No Hx Genitourinary Surgery: No Hx Orthopedic Surgery: No Anesthesia Reaction: No - PPD History Previous Implant?: Yes Documented Results: Negative w/proof Implanted On Prior [facility] Admission?: Yes Date: 06/03/16 Results: 0mm PPD to be Administered?: No - Smoking Cessation Smoking history: Never smoked Have you smoked in the past 12 months: No Aproximately how many cigarettes per day: 0 Cigars Per Day: 0 Hx Chewing Tobacco Use: No Initiated information on smoking cessation: No - Substance & Tx. History Hx Alcohol Use: Yes Hx Substance Use: No Substance Use Type: Alcohol Hx Substance Use Treatment: Yes - Substances Abused Alcohol Route: Oral Frequency: Daily Amount used: liquor- 3 pints, Age of first use: 25 Date of Last Use: 09/07/16 Family Disease History - Family Disease History Family Disease History: Heart Disease: Father (), Other: Grandparent ( UNCLE ), Mother (), Brother (ALCOHOL ) Admission Physical Exam S - Vital Signs Vital Signs: Vital Signs - 24 hr 09/07/16 17:56 Temperature 96.3 F L Pulse Rate 115 H Respiratory 20 Rate Blood Pressure 135/82 - Physical General Appearance: Yes: Appropriately Dressed, Mild Distress, Alcohol on Breath , Thin, Tremorous, Irritable, Sweating, Anxious HEENTM: Yes: Hearing grossly Normal, Normal ENT Inspection, Normocephalic, Normal Voice Respiratory: Yes: Chest Non-Tender, Lungs Clear, Normal Breath Sounds, No Respiratory Distress, No Accessory Muscle Use Neck: Yes: Supple, Trachea in good position Breast: Yes: Breasts Symetrical Cardiology: Yes: Regular Rhythm, S1, S2, Tachycardia Abdominal: Yes: Non Tender, Soft Genitourinary: Yes: Within Normal Limits Back: Yes: Normal Inspection Musculoskeletal: Yes: full range of Motion, Gait Steady Extremities: Yes: Normal Inspection, Normal Range of Motion, Non-Tender, Tremors Neurological: Yes: Alert, Motor Strength 5/5, Normal Response, Depressed Affect Integumentary: Yes: Warm Lymphatic: Yes: Within Normal Limits - Diagnostic (1) Alcohol dependence with uncomplicated withdrawal Current Visit: Yes Status: Acute (2) Glaucoma Current Visit: Yes Status: Acute Qualifiers: Glaucoma type: open-angle Open angle glaucoma type: primary Laterality: bilateral Glaucoma stage: mild stage Qualified Code(s): H40.1131 - Primary open-angle glaucoma, bilateral, mild stage (3) Weight loss Current Visit: Yes Status: Acute (4) Depression Current Visit: Yes Status: Suspected Qualifiers: Depression Type: dysthymia Qualified Code(s): F34.1 - Dysthymic disorder Comment: "MY FIVE YEARS AGO" TEARFUL (5) COPD (chronic obstructive pulmonary disease) Current Visit: Yes Status: Chronic Qualifiers: COPD type: emphysema Emphysema type: other Qualified Code(s): J43.8 - Other emphysema Cleared for Admission [facility] - Detox or Rehab [facility] Level of Care: Medically Managed Detox Regimen/Protocol: Librium [facility] Breath Alcohol Content Breath Alcohol Content: 0.204 Urine Drug Screen - Results Drug Screen Negative: Yes Urine Drug Screen Results: BZO-Benzodiazepines
[2016-09-07] MEDS ORDERED: MAG HYDROX/AL HYDROX/SIMETH 30 ML UNIT-DOSE CUP PO PRN (20:48)
[2016-09-07] MEDS ORDERED: MAGNESIUM CITRATE 300 ML BOTTLE PO PRN (20:48)
[2016-09-07] MEDS ORDERED: MAGNESIUM HYDROX 2400MG/30ML ORAL SUSPENSION 30 ML CUP PO PRN (20:48)
[2016-09-07] MEDS ORDERED: guaiFENesin/D-METHORPHAN HB 10 ML UNIT-DOSE CUPS PO PRN (20:48)
[2016-09-07] MEDS ORDERED: hydrOXYzine PAMOATE 50 MG CAPSULE (FP) PO PRN (20:48)
[2016-09-07] MEDS ORDERED: chlordiazePOXIDE HCL 25 MG CAPSULE PO ONE (20:48)
[2016-09-07] MEDS ORDERED: LOPERAMIDE HCL 2 MG CAPSULE PO PRN (20:48)
[2016-09-07] MEDS ORDERED: P-EPHED 60MG/TRIPROLIDI 2.5MG TABLET PO PRN (20:48)
[2016-09-07] MEDS ORDERED: diphenhydrAMINE HCL 50 MG CAPSULE PO PRN (20:48)
[2016-09-07] MEDS ORDERED: ACETAMINOPHEN 325 MG TABLET (FP) PO PRN (20:48)
[2016-09-07] MEDS ORDERED: IBUPROFEN 400 MG TABLET (FP) PO PRN (20:48)
[2016-09-07] MEDS ORDERED: MENTHOL/PHENOL 1 EACH UD MM PRN (20:48)
[2016-09-07] MEDS ORDERED: ALBUTEROL SO4 6.7 GM HFA INHALER IH PRN (20:52)
[2016-09-07] MEDS: BUDESONIDE/FORMETEROL FUMARATE 80/4.5 mcg INHALER IH SCH (21:42)
[2016-09-07] MEDS: THIAMINE HCL 100 MG TABLET (FP) PO SCH (21:42)
[2016-09-07] MEDS: chlordiazePOXIDE HCL 25 MG CAPSULE PO SCH (22:29)
[2016-09-07] MEDS: LATANOPROST 0.005% OPHTH SOLN 2.5ML BOTTLE OU SCH (23:04)
[2016-09-07 23:05] LABS: URINE APPEARANCE CLEAR; URINE BILIRUBIN NEGATIVE (NEGATIVE); URINE COLOR AMBER; URINE GLUCOSE (UA) 1+ (NEGATIVE); URINE KETONE 1+ (NEGATIVE); URINE LEUK ESTERASE NEGATIVE (NEGATIVE); URINE NITRITE NEGATIVE (NEGATIVE); URINE UROBILINOGEN 4.0 E.U/dl E.U./dl (0.2-1.0)
[2016-09-07 23:13] LABS: URINE BLOOD 1+ (NEGATIVE); URINE PROTEIN 2+ (NEGATIVE)
[2016-09-07 23:17] LABS: GRANULAR CASTS 4 /lpf; URINE HYALINE CAST 17 /lpf; URINE MUCUS MANY; URINE RBC 2 /hpf (0-3); URINE WBC 8 /hpf (3-5)
[2016-09-08] MEDS: chlordiazePOXIDE HCL 25 MG CAPSULE PO SCH ×4 (05:45→22:05)
[2016-09-08] MEDS: chlordiazePOXIDE HCL 25 MG CAPSULE PO PRN ×2 (08:49→19:37)
[2016-09-08 10:13] LABS: ALBUMIN 3.5 g/dl (3.4-5.0); CALCIUM 8.6 mg/dL (8.5-10.1)
[2016-09-08] MEDS: TETRAHYDROZOLINE HCL 1 DROP DROPS OD SCH (10:14)
[2016-09-08] MEDS: PRENATAL VITAMINS W/ FOLIC ACID TABLET (FP) PO SCH (10:15)
[2016-09-08] MEDS: BUDESONIDE/FORMETEROL FUMARATE 80/4.5 mcg INHALER IH SCH ×2 (10:15→22:05)
[2016-09-08 10:17] LABS: ALK PHOS 67 U/L (45-117); ANION GAP 9 (8-16); CO2 36 mmol/L (21-32); COCKROFT - GAULT 104.11; CREATININE 0.6 mg/dL (0.7-1.3); GLUCOSE,RANDOM 95 mg/dL (74-106); SGOT/AST 73 U/L (15-37); SGPT/ALT 21 U/L (12-78); TOT PROT 6.9 g/dl (6.4-8.2)
[2016-09-08 10:21] LABS: MCH 34.4 pg (25.7-33.7); MCHC 33.6 g/dl (32.0-35.9); MEAN CELL VOLUME 102.2 fl (80-96); MEAN PLT VOLUME 8.3 fl (7.5-11.1); PLATELET COUNT 113 K/MM3 (134-434); RDW 17.3 % (11.9-15.9); WHITE BLOOD COUNT 3.2 K/mm3 (4.0-10.0)
[2016-09-08] MEDS ORDERED: POTASSIUM CHLORIDE TABS 20 MEQ TABLET.ER (FP) PO ONE (10:27)
--- NOTE | 2016-09-08 10:38 | CONSULT ---
[facility] Psychiatric Consult - Data Date of interview: 09/08/16 Admission source: [facility] Identifying data: Readmission to [facility] for this 71 y/o AA male seeking detox treatment on for alcohol dependence.Patient is ,a father of two,domiciled,living in [place] and supported on Social Security benefits. Substance Abuse History: - Smoking Cessation. Smoking history: Never smoked. Have you smoked in the past 12 months: No. Aproximately how many cigarettes per day: 0. Cigars Per Day: 0. Hx Chewing Tobacco Use: No. Initiated information on smoking cessation: No. - Substance & Tx. History. Hx Alcohol Use: Yes. Hx Substance Use: No. Substance Use Type: Alcohol. Hx Substance Use Treatment: Yes. - Substances Abused. Alcohol. Route: Oral. Frequency : Daily. Amount used: liquor- 3 pints,. Age of first use: 25. Date of Last Use: 09/07/16. Confirmed by patient. Medical History: History of glaucoma,arthritis,alcohol-related seizure, bronchial asthma,COPD and right inguinal herniorraphy.Noted additional history of appendectomy. Psychiatric History: Patient denies history of psychiatric hospitalizations.Sought psychiatric consultation in 2010 after the of his .Mr Allen reports that he was diagnosed with MDD and prescribed paxil 20 mg/day.He admits to total non-adherence to this medication and recommended follow up schedule (ignores [facility] referrals).In this interview,the patient reports that he has not taken paxil for more than four months.Reason : " I have been drinking all the time ." Patient denies history of suicide attempts. Physical/Sexual Abuse/Trauma History: No reported history of sexual abuse. Additional Comment: Urine Drug Screen Results: BZO-Benzodiazepines.Noted. Mental Status Exam - Mental Status Exam Alert and Oriented to: Time, Place, Person Cognitive Function: Grossly Intact Patient Appearance: Unkempt, Disheveled Mood: Withdrawn Affect: Appropriate, Normal Range Patient Behavior: Fatigued, Appropriate, Cooperative Speech Pattern: Clear Voice Loudness: Normal Thought Process: Goal Oriented Thought Disorder: Not Present Hallucinations: Denies Suicidal Ideation: Denies Homicidal Ideation: Denies Insight/Judgement: Poor Sleep: Fair Appetite: Fair Muscle strength/Tone: Normal Gait/Station: Normal Psychiatric Findings - Problem List ([place] 1, 2,3) (1) Alcohol dependence with uncomplicated withdrawal Current Visit: Yes Status: Acute (2) Alcohol-induced mood disorder Current Visit: Yes Status: Acute (3) Glaucoma Current Visit: Yes Status: Chronic Qualifiers: Glaucoma type: open-angle Open angle glaucoma type: primary Laterality: bilateral Glaucoma stage: mild stage Qualified Code(s): H40.1131 - Primary open-angle glaucoma, bilateral, mild stage (4) Weight loss Current Visit: Yes Status: Chronic (5) COPD (chronic obstructive pulmonary disease) Current Visit: Yes Status: Chronic Qualifiers: COPD type: emphysema Emphysema type: other Qualified Code(s): J43.8 - Other emphysema (6) Arthritis Current Visit: Yes Status: Chronic (7) GERD (gastroesophageal reflux disease) Current Visit: Yes Status: Chronic Qualifiers: Esophagitis presence: without esophagitis Qualified Code(s): K21.9 - Gastro-esophageal reflux disease without esophagitis (8) History of appendectomy Current Visit: Yes Status: Chronic (9) History of hernia repair Current Visit: Yes Status: Chronic - Initial Treatment Plan Initial Treatment Plan: Psychoeducation.Detoxification.Observation.
--- NOTE | 2016-09-08 11:57 | EKG ---
Test Reason : Blood Pressure : / mmHG Vent. Rate : 106 BPM Atrial Rate : 106 BPM P-R Int : 134 ms QRS Dur : 080 ms QT Int : 356 ms P-R-T Axes : 035 015 063 degrees QTc Int : 472 ms SINUS TACHYCARDIA WITH OCCASIONAL PREMATURE VENTRICULAR COMPLEXES OTHERWISE NORMAL ECG WHEN COMPARED WITH ECG OF 25-JUL-2016 17:12, PREMATURE VENTRICULAR COMPLEXES ARE NOW PRESENT CRITERIA FOR SEPTAL INFARCT ARE NO LONGER PRESENT Confirmed by NATE JIMENEZ, NOLA ([id number]) on 09/08/2016 11:57:27 AM Referred By: Confirmed By:NOLA SULLIVAN MD
--- NOTE | 2016-09-08 11:59 | EKG ---
Test Reason : Blood Pressure : / mmHG Vent. Rate : 096 BPM Atrial Rate : 096 BPM P-R Int : 138 ms QRS Dur : 080 ms QT Int : 406 ms P-R-T Axes : 039 019 073 degrees QTc Int : 512 ms SINUS RHYTHM WITH PREMATURE ATRIAL COMPLEXES AND PREMATURE VENTRICULAR COMPLEXES OR FUSION COMPLEXES PROLONGED QT ABNORMAL ECG WHEN COMPARED WITH ECG OF 07-SEP-2016 20:53, FUSION COMPLEXES ARE NOW PRESENT PREMATURE ATRIAL COMPLEXES ARE NOW PRESENT Confirmed by NOLA SULLIVAN MD ([id number]) on 09/08/2016 11:59:05 AM Referred By: Confirmed By:NOLA SULLIVAN MD
--- NOTE | 2016-09-08 15:57 | PN ---
[facility] CIWA - CIWA Score Nausea/Vomitin-Int. Nausea w/Dry Heave Muscle Tremors: 5 Anxiety: 4-Mod. Anxious/Guarded Agitation: 4-Moderately Restless Paroxysmal Sweats: 1-Minimal Palms Moist Orientation: 0-Oriented Tacttile Disturbances: 3-Moderate Itch/Numb/Burn Auditory Disturbances: 0-None Visual Disturbances: 0-None Headache: 0-None Present CIWA-Ar Total Score: 21 S Progress Note (SOAP) Subjective: ANXIETY, SEVERE TO MODERATE TREMORS,FATIGUE. Objective: 09/08/16 15:55 Vital Signs - 24 hr 09/07/16 09/07/16 09/08/16 17:56 22:11 00:21 Temperature 96.3 F L 97.4 F L Pulse Rate 115 H 91 H 87 Respiratory 20 18 Rate Blood Pressure 135/82 158/93 09/08/16 09/08/16 09/08/16 03:29 06:32 09:23 Temperature 100.1 F H 99.5 F Pulse Rate 110 H 106 H Respiratory 16 18 20 Rate Blood Pressure 139/89 143/88 09/08/16 11:13 Temperature 97.5 F L Pulse Rate 94 H Respiratory 18 Rate Blood Pressure 127/79 Laboratory Last Values WBC 3.2 K/mm3 (4.0-10.0) L 09/08/16 07:00 RBC 4.05 M/mm3 (4.00-5.60) 09/08/16 07:00 Hgb 13.9 GM/dL (11.7-16.9) 09/08/16 07:00 Hct 41.4 % (35.4-49) 09/08/16 07:00 MCV 102.2 fl (80-96) H 09/08/16 07:00 MCHC 33.6 g/dl (32.0-35.9) 09/08/16 07:00 RDW 17.3 % (11.9-15.9) H 09/08/16 07:00 Plt Count 113 K/MM3 (134-434) L 09/08/16 07:00 MPV 8.3 fl (7.5-11.1) 09/08/16 07:00 Sodium 139 mmol/L (136-145) 09/08/16 07:00 Potassium 2.9 mmol/L (3.5-5.1) L* 09/08/16 07:00 Chloride 94 mmol/L (98-107) L 09/08/16 07:00 Carbon Dioxide 36 mmol/L (21-32) H 09/08/16 07:00 Anion Gap 9 (8-16) 09/08/16 07:00 BUN 9 mg/dL (7-18) 09/08/16 07:00 Creatinine 0.6 mg/dL (0.7-1.3) L 09/08/16 07:00 Creat Clearance w eGFR > 60 (>60) 09/08/16 07:00 Random Glucose 95 mg/dL (74-106) D 09/08/16 07:00 Calcium 8.6 mg/dL (8.5-10.1) 09/08/16 07:00 Total Bilirubin 1.0 mg/dL (0.2-1.0) D 09/08/16 07:00 AST 73 U/L (15-37) H D 09/08/16 07:00 ALT 21 U/L (12-78) D 09/08/16 07:00 Alkaline Phosphatase 67 U/L (45-117) D 09/08/16 07:00 Total Protein 6.9 g/dl (6.4-8.2) 09/08/16 07:00 Albumin 3.5 g/dl (3.4-5.0) 09/08/16 07:00 Urine Color Jenny 09/07/16 22:04 Urine Appearance Clear 09/07/16 22:04 Urine pH 5.0 (5.0-8.0) 09/07/16 22:04 Ur Specific [place] 1.025 (1.005-1.025) 09/07/16 22:04 Urine Protein 2+ (NEGATIVE) H 09/07/16 22:04 Urine Glucose (UA) 1+ (NEGATIVE) H 09/07/16 22:04 Urine Ketones 1+ (NEGATIVE) H 09/07/16 22:04 Urine Blood 1+ (NEGATIVE) H 09/07/16 22:04 Urine Nitrite Negative (NEGATIVE) 09/07/16 22:04 Urine Bilirubin Negative (NEGATIVE) 09/07/16 22:04 Urine Urobilinogen 4.0 e.u/dl E.U./dl (0.2-1.0) 05/30/17 22:04 Ur Leukocyte Esterase Negative (NEGATIVE) 09/07/16 22:04 Urine RBC 2 /hpf (0-3) 09/07/16 22:04 Urine WBC 8 /hpf (3-5) 09/07/16 22:04 Ur Epithelial Cells Rare /hpf (FEW) 09/07/16 22:04 Hyaline Casts 17 /lpf 09/07/16 22:04 Granular Casts 4 /lpf 09/07/16 22:04 Urine Mucus Many 09/07/16 22:04 RPR Titer Nonreactive (NONREACTIVE) 09/08/16 07:00 EKG:PVCs AND PROLONGED QT TACHYCARDIA ACUTE HYPOKALEMIA LOW GRADE TEMP Assessment: 09/08/16 15:57 WITHDRAWAL SX R/O PATHOLOGY Plan: CONTINUE DETOX AND MAY TRANSFER TO [facility] ER FOR FURTHER EVALUATION. ADDENDUM:PT TRANSFERRED VIA AMBULANCE TO [facility] FOR STABILIZATION. SPOKE WITH DR GAMING AT THE ER. PT MAY RETURN TO CONTINUE DETOX ONCE STABLE.
[2016-09-08] MEDS: LATANOPROST 0.005% OPHTH SOLN 2.5ML BOTTLE OU SCH (22:04)
[2016-09-08] MEDS: THIAMINE HCL 100 MG TABLET (FP) PO SCH (22:05)
[2016-09-08] MEDS: POTASSIUM CHLORIDE TABS 20 MEQ TABLET.ER (FP) PO SCH (22:05)
[2016-09-09] MEDS: chlordiazePOXIDE HCL 25 MG CAPSULE PO PRN ×2 (01:25→08:50)
[2016-09-09] MEDS: chlordiazePOXIDE HCL 25 MG CAPSULE PO SCH ×3 (05:37→17:22)
[2016-09-09] MEDS: BUDESONIDE/FORMETEROL FUMARATE 80/4.5 mcg INHALER IH SCH ×2 (10:07→22:16)
[2016-09-09] MEDS: TETRAHYDROZOLINE HCL 1 DROP DROPS OD SCH (10:07)
[2016-09-09] MEDS: PRENATAL VITAMINS W/ FOLIC ACID TABLET (FP) PO SCH (10:07)
[2016-09-09] MEDS: POTASSIUM CHLORIDE TABS 20 MEQ TABLET.ER (FP) PO SCH ×2 (10:07→22:17)
--- NOTE | 2016-09-09 10:30 | PN ---
[facility] CIWA - CIWA Score Nausea/Vomitin-No Nausea/No Vomiting Muscle Tremors: 4-Moderate,w/Arms Extend Anxiety: 4-Mod. Anxious/Guarded Agitation: 4-Moderately Restless Paroxysmal Sweats: 3 Orientation: 0-Oriented Tacttile Disturbances: 1-Very Mild Itch/Numbness Auditory Disturbances: 0-None Visual Disturbances: 0-None Headache: 0-None Present CIWA-Ar Total Score: 16 BHS Progress Note (SOAP) Subjective: Sweating,interrupted sleep,restless,tremors,anxiety.Pt. was sent to ED because of abnormal EKG in the presence of low K+. He was evaluated and returned to detox. Objective: 09/09/16 10:25 Vital Signs - 8 hr 09/09/16 09/09/16 09/09/16 03:53 06:23 07:34 Temperature 97.8 F Pulse Rate 91 H 90 Respiratory 18 18 Rate Blood Pressure 157/98 145/92 09/09/16 09:12 Temperature 98.9 F Pulse Rate 93 H Respiratory 20 Rate Blood Pressure 148/95 Laboratory Last Values WBC 3.2 K/mm3 (4.0-10.0) L 09/08/16 07:00 RBC 4.05 M/mm3 (4.00-5.60) 09/08/16 07:00 Hgb 13.9 GM/dL (11.7-16.9) 09/08/16 07:00 Hct 41.4 % (35.4-49) 09/08/16 07:00 MCV 102.2 fl (80-96) H 09/08/16 07:00 MCHC 33.6 g/dl (32.0-35.9) 09/08/16 07:00 RDW 17.3 % (11.9-15.9) H 09/08/16 07:00 Plt Count 113 K/MM3 (134-434) L 09/08/16 07:00 MPV 8.3 fl (7.5-11.1) 09/08/16 07:00 Sodium 139 mmol/L (136-145) 09/08/16 07:00 Potassium 2.9 mmol/L (3.5-5.1) L* 09/08/16 07:00 Chloride 94 mmol/L (98-107) L 09/08/16 07:00 Carbon Dioxide 36 mmol/L (21-32) H 09/08/16 07:00 Anion Gap 9 (8-16) 09/08/16 07:00 BUN 9 mg/dL (7-18) 09/08/16 07:00 Creatinine 0.6 mg/dL (0.7-1.3) L 09/08/16 07:00 Creat Clearance w eGFR > 60 (>60) 09/08/16 07:00 Random Glucose 95 mg/dL (74-106) D 09/08/16 07:00 Calcium 8.6 mg/dL (8.5-10.1) 09/08/16 07:00 Total Bilirubin 1.0 mg/dL (0.2-1.0) D 09/08/16 07:00 AST 73 U/L (15-37) H D 09/08/16 07:00 ALT 21 U/L (12-78) D 09/08/16 07:00 Alkaline Phosphatase 67 U/L (45-117) D 09/08/16 07:00 Total Protein 6.9 g/dl (6.4-8.2) 09/08/16 07:00 Albumin 3.5 g/dl (3.4-5.0) 09/08/16 07:00 Urine Color Jenny 09/07/16 22:04 Urine Appearance Clear 09/07/16 22:04 Urine pH 5.0 (5.0-8.0) 09/07/16 22:04 Ur Specific [place] 1.025 (1.005-1.025) 09/07/16 22:04 Urine Protein 2+ (NEGATIVE) H 09/07/16 22:04 Urine Glucose (UA) 1+ (NEGATIVE) H 09/07/16 22:04 Urine Ketones 1+ (NEGATIVE) H 09/07/16 22:04 Urine Blood 1+ (NEGATIVE) H 09/07/16 22:04 Urine Nitrite Negative (NEGATIVE) 09/07/16 22:04 Urine Bilirubin Negative (NEGATIVE) 09/07/16 22:04 Urine Urobilinogen 4.0 e.u/dl E.U./dl (0.2-1.0) 09/07/16 22:04 Ur Leukocyte Esterase Negative (NEGATIVE) 09/07/16 22:04 Urine RBC 2 /hpf (0-3) 09/07/16 22:04 Urine WBC 8 /hpf (3-5) 09/07/16 22:04 Ur Epithelial Cells Rare /hpf (FEW) 09/07/16 22:04 Hyaline Casts 17 /lpf 09/07/16 22:04 Granular Casts 4 /lpf 09/07/16 22:04 Urine Mucus Many 09/07/16 22:04 RPR Titer Nonreactive (NONREACTIVE) 09/08/16 07:00 on K+ replacement Assessment: 09/09/16 10:27 Withdrawal sx Hypokalemia Plan: Continue detox
[2016-09-09] MEDS: LATANOPROST 0.005% OPHTH SOLN 2.5ML BOTTLE OU SCH (22:17)
[2016-09-09] MEDS: THIAMINE HCL 100 MG TABLET (FP) PO SCH (22:17)
[2016-09-09] MEDS: chlordiazePOXIDE 5 MG CAPSULE PO SCH (22:17)
[2016-09-10] MEDS: chlordiazePOXIDE 5 MG CAPSULE PO SCH ×2 (05:49→10:08)
[2016-09-10 10:05] VITALS: BP 136/70; PULSE 73; TEMP 98.7
[2016-09-10] MEDS: BUDESONIDE/FORMETEROL FUMARATE 80/4.5 mcg INHALER IH SCH (10:08)
[2016-09-10] MEDS: PRENATAL VITAMINS W/ FOLIC ACID TABLET (FP) PO SCH (10:08)
[2016-09-10] MEDS: TETRAHYDROZOLINE HCL 1 DROP DROPS OD SCH (10:08)
[2016-09-10] MEDS: POTASSIUM CHLORIDE TABS 20 MEQ TABLET.ER (FP) PO SCH (10:33)
--- NOTE | 2016-09-10 11:25 | DS ---
[facility] Detox Discharge Summary Admission Date: 09/07/16 Discharge Date: 09/10/16 - History Present History: Alcohol Dependence Additional Comments: ADVISED PATIENT TO FOLLOW-UP WITH [facility] FOR GENERAL MEDICAL ASSESSMENT. Pertinent Past History: Asthma, COPD, Depression, Arthritis, Glaucoma. - Physical Exam Results Vital Signs: Vital Signs Temperature 98.7 F 09/10/16 10:05 Pulse Rate 73 09/10/16 10:05 Respiratory Rate 18 09/10/16 10:05 Blood Pressure 136/70 09/10/16 10:05 O2 Sat by Pulse Oximetry (%) Pertinent Admission Physical Exam Findings: WITHDRAWAL SYMPTOMS. Laboratory Tests 09/07/16 09/08/16 09/08/16 22:04 07:00 07:00 WBC 3.2 L RBC 4.05 Hgb 13.9 Hct 41.4 MCV 102.2 H MCHC 33.6 RDW 17.3 H Plt Count 113 L MPV 8.3 Sodium 139 Potassium 2.9 L* Chloride 94 L Carbon Dioxide 36 H Anion Gap 9 BUN 9 Creatinine 0.6 L Creat Clearance w eGFR > 60 Random Glucose 95 D Calcium 8.6 Total Bilirubin 1.0 D AST 73 H D ALT 21 D Alkaline Phosphatase 67 D Total Protein 6.9 Albumin 3.5 Urine Color Jenny Urine Appearance Clear Urine pH 5.0 Ur Specific [place] 1.025 Urine Protein 2+ H Urine Glucose (UA) 1+ H Urine Ketones 1+ H Urine Blood 1+ H Urine Nitrite Negative Urine Bilirubin Negative Urine Urobilinogen 4.0 e.u/dl Ur Leukocyte Esterase Negative Urine RBC 2 Urine WBC 8 Ur Epithelial Cells Rare Hyaline Casts 17 Granular Casts 4 Urine Mucus Many RPR Titer 09/08/16 07:00 WBC RBC Hgb Hct MCV MCHC RDW Plt Count MPV Sodium Potassium Chloride Carbon Dioxide Anion Gap BUN Creatinine Creat Clearance w eGFR Random Glucose Calcium Total Bilirubin AST ALT Alkaline Phosphatase Total Protein Albumin Urine Color Urine Appearance Urine pH Ur Specific [place] Urine Protein Urine Glucose (UA) Urine Ketones Urine Blood Urine Nitrite Urine Bilirubin Urine Urobilinogen Ur Leukocyte Esterase Urine RBC Urine WBC Ur Epithelial Cells Hyaline Casts Granular Casts Urine Mucus RPR Titer Nonreactive LABS NOTED. - Treatment Hospital Course: Detoxed Safely - Medication Discharge Medications: Ambulatory Orders Paroxetine HCl [Paxil -] 20 mg PO DAILY #30 tablet 04/30/15 Albuterol Sulfate Inhaler - [Ventolin HFA Inhaler -] 2 inh PO Q4H PRN #1 cartridge 04/16/16 Budesonide/Formeterol Fumarate [SYMBICORT 80/4.5mcg -] 2 inh IH BID #1 canister 04/16/16 Tetrahydrozoline HCl/Zn Sulf [Visine Allergy Relief Drop] 2 drop AU PRN PRN #1 drops 04/16/16 Latanoprost 0.005% Eye Drops [Xalatan 0.005% Eye Drops -] 1 drop OU HS #1 drop 07/29/16 Potassium Chloride [K-Dur -] 20 meq PO BID@1000,1800 #10 tab 07/29/16 - Diagnosis (1) Alcohol dependence with uncomplicated withdrawal Current Visit: Yes Status: Acute (2) COPD (chronic obstructive pulmonary disease) Current Visit: Yes Status: Chronic Qualifiers: COPD type: emphysema Emphysema type: unspecified Qualified Code( s): J43.9 - Emphysema, unspecified (3) Glaucoma Current Visit: Yes Status: Chronic Qualifiers: Glaucoma type: open-angle Open angle glaucoma type: primary Laterality: bilateral Glaucoma stage: mild stage Qualified Code(s): H40.1131 - Primary open-angle glaucoma, bilateral, mild stage (4) Hypokalemia Current Visit: Yes Status: Chronic (5) Alcohol-induced mood disorder Current Visit: Yes Status: Acute - AMA Did Patient Leave Against Medical Advice: Yes (PATIENT HAD BILLS TO BE PAID AND COULD NOT STAY TO COMPLETE DETOX REGIMEN.)
[2016-09-10] MEDS ORDERED: chlordiazePOXIDE HCL 10 MG CAPSULE PO SCH (23:00)
== END 2016-09-10 11:14 | disposition left against medical advice (07) | DRG 894 ==
LOC: YASAS 15:53 → Y3N 20:06
PROVIDERS: ADMIT Internal Medicine; ATTEND Internal Medicine
PROC: HZ2ZZZZ Detoxification Services for Substance Abuse Treatment (ICD-10-PCS; principal; 2016-09-10)
DX: F10.230 Alcohol dependence with withdrawal, uncomplicated (principal); F10.24 Alcohol dependence with alcohol-induced mood disorder; F34.1 Dysthymic disorder; E87.6 Hypokalemia; H40.1131 Primary open-angle glaucoma, bilateral, mild stage; K21.9 Gastro-esophageal reflux disease without esophagitis; M12.9 Arthropathy, unspecified; R63.4 Abnormal weight loss; Z68.23 Body mass index [BMI] 23.0-23.9, adult
CPT/HCPCS: 36415; 80053; 81003; 81015; 82009; 82803; 83735; 85025; 85027; 86593; 93005; 93010; 96361; 96365; 96375; 96376; 99284-25

== ENCOUNTER 2016-09-08 12:00 | Emergency (ER) | payer OTHER ==
[2016-09-08] MEDS ORDERED: SODIUM CHLORIDE 1,000 ML IV ONE (12:17)
[2016-09-08 12:22] VITALS: BMI 23.5
[2016-09-08] MEDS ORDERED: FOLIC ACID INJECTION - 1 MG, THIAMINE HCL 100 MG, MULTIVIT INJECTION ADULT 10 ML in SOD... IVPB ONE (12:45)
--- NOTE | 2016-09-08 12:48 | PDOC ---
History of Present Illness - General Chief Complaint: Revisit, Lab Variance Stated Complaint: ABNORMAL LABS Time Seen by Provider: 09/08/16 12:17 History Source: Patient Exam Limitations: No Limitations - History of Present Illness Initial Comments: 09/08/16 12:48 71y M hxof EToh Abuse, [place], sent by [facility] for evaluation of hypokalemia. pt was also noted to be persistently tachycardic. pt staets hiis last drink was 1pt of vodka yesterday, and when he stops drinking he can feel his heart rate increase for a few days, pt has hx of withdrawal seizures in the remote past but non recently. Pt denies any abd pain, diarrhea, bpr, melena, n/v abd pain, chest pain, sob, dizziness/ pt states he binged for the past month and has not really eat much. Past History - Past Medical History Allergies/Adverse Reactions: Allergies Allergy/AdvReac Type Severity Reaction Status Date / Time No Known Allergies Allergy Verified 09/08/16 12:13 Home Medications: Ambulatory Orders Paroxetine HCl [Paxil -] 20 mg PO DAILY #30 tablet 04/30/15 Albuterol Sulfate Inhaler - [Ventolin HFA Inhaler -] 2 inh PO Q4H PRN #1 cartridge 04/16/16 Budesonide/Formeterol Fumarate [SYMBICORT 80/4.5mcg -] 2 inh IH BID #1 canister 04/16/16 Tetrahydrozoline HCl/Zn Sulf [Visine Allergy Relief Drop] 2 drop AU PRN PRN #1 drops 04/16/16 Latanoprost 0.005% Eye Drops [Xalatan 0.005% Eye Drops -] 1 drop OU HS #1 drop 07/29/16 Potassium Chloride [K-Dur -] 20 meq PO BID@1000,1800 #10 tab 07/29/16 Anemia: No Asthma: Yes (on albuterol inhaler) Cancer: No Cardiac Disorders: No CVA: No COPD: No CHF: No Dementia: No Diabetes: No GI Disorders: No Disorders: No HTN: No Hypercholesterolemia: No Kidney Stones: No Liver Disease: No Suicide Attempt (Hx): No Seizures: Yes (last 30 years ago) Thyroid Disease: No - Surgical History Abdominal Surgery: Yes (HERNIA REPAIR RIGHT) Appendectomy: Yes (30 years go) Cardiac Surgery: No Cholecystectomy: No Lung Surgery: No Neurologic Surgery: No Orthopedic Surgery: No - Reproductive History Testicular Surgery: No - Psycho/Social/Smoking Cessation Hx Anxiety: No Suicidal Ideation: No Smoking History: Never smoked Have you smoked in the past 12 months: No Number of Cigarettes Smoked Daily: 0 Cigars Per Day: 0 Information on smoking cessation initiated: No 'Breaking Loose' booklet given: 06/01/16 Hx Alcohol Use: Yes Drug/Substance Use Hx: No Substance Use Type: Alcohol Hx Substance Use Treatment: Yes Review of Systems - Review of Systems Able to Perform ROS?: Yes Comments:: 09/08/16 12:54 Constitutional - no reported Fever, Chills, HEENT: no reported vision changes, sore throat Respiratory: no reported cough, sob, hemoptysis Cardiac: + palpitations, no reported chest pain, light headedness, leg swelling Abd/GI: no reported abd pain, nausea, vomiting, blood per rectum, melena, diarrhea : no reported dysuria, frequency, discharge Musculskelatal - no reported back pain, joint swelling skin - no reported bruising, erythema, rash neurological: no reported headache, numbness, focal weakness, tingling, ataxia, hematologic: no reported anemia, easy bruising, easy bleeding *Physical Exam - Vital Signs Last Vital Signs Temp Pulse Resp BP Pulse Ox 98.3 F 109 H 20 167/101 96 09/08/16 12:08 09/08/16 12:08 09/08/16 12:08 09/08/16 12:08 09/08/16 12:08 - Physical Exam Comments: 09/08/16 12:54 GENERAL: The patient is awake, alert, and fully oriented, Nontoxic - in no acute distress. HEAD: Normocephalic, atraumatic. EYES: extraocular movements intact, sclera anicteric, conjunctiva clear. ENT: Normal voice, Moist mucous membranes, +tongue fasiculations NECK: Normal range of motion, supple LUNGS: Breath sounds equal, clear to auscultation bilaterally. No wheezes, no rhonchi, no rales. HEART: tachycardic, normal S1 and S2 without murmur, rub or gallop. ABDOMEN: Soft, nontender, normoactive bowel sounds. No guarding, no rebound. . No CVA tenderness EXTREMITIES: Normal range of motion, no edema. No clubbing or cyanosis. No cords, erythema, or tenderness. NEUROLOGICAL: +tremulous No facial assymetry, Normal speech, moving all 4 extremities spontaneously and symmetrically PSYCH: Normal mood, normal affect. SKIN: Warm, Dry, normal turgor, Heart Score/ECG Review - ECG Impressions Comment:: 09/08/16 12:55 Twelve-lead EKG was performed and reviewed by me. There is normal sinus rhythm with a heart rate of 106 The axis is normal. The intervals are normal. There is normal R wave progression There are no ST or T wave abnormalities. Impression: Sinus tachycardia ED Treatment Course - LABORATORY CBC & Chemistry Diagram: 09/08/16 12:58 09/08/16 12:58 Medical Decision Making - Medical Decision Making 09/08/16 12:56 suspect possible etoh withdrawl will ck mag, k will r/o aka will give fluids, banana bag consider further benzos if not responding 09/08/16 14:07 pts labs reviewed K slighlty low at 3.2, will replete with kdur HR improved with valium - suspect his symptoms are secondary to withdrawal. will discuss with [facility] regarding transfer back for further detox 09/08/16 14:[address] carroll agree with discharge back to [facility] to continue his detox and management of his hypokalmia I discussed the physical exam findings, ancillary test results and final diagnoses with the patient. I answered all of the patient's questions. The patient was satisfied with the care received and felt comfortable with the discharge plan and treatment plan. The patient will call their primary care physician within 24 hours to arrange follow-up and will return to the Emergency Department with any new, persistent or worsening symptoms. *DC/Admit/Observation/Transfer Diagnosis at time of Disposition: Hypokalemia Alcohol withdrawal Qualifiers: Complication of substance-induced condition: uncomplicated Qualified Code(s): F10.230 - Alcohol dependence with withdrawal, uncomplicated - Discharge Dispostion Disposition: I.P. ALCOHOL/SUBS ABUSE REHAB Condition at time of disposition: Stable Admit: No
[2016-09-08 13:10] LABS: BASOPHIL 1.1 % (0-2.0); EOSINOPHIL 2.6 % (0-4.5); MCHC 33.8 g/dl (32.0-35.9); MEAN CELL VOLUME 100.6 fl (80-96); NEUTROPHILS 55.5 % (42.8-82.8); PLATELET COUNT 111 K/MM3 (134-434); RDW 17.3 % (11.9-15.9); WHITE BLOOD COUNT 4.4 K/mm3 (4.0-10.0)
[2016-09-08 13:31] LABS: VENOUS BLOOD GAS HCO3 37.4 meq/L (19-25); VENOUS PH 7.45 (7.32-7.42)
[2016-09-08 13:33] LABS: ALBUMIN 4.1 g/dl (3.4-5.0); ALK PHOS 79 U/L (45-117); ANION GAP 9 (8-16); BILIRUBIN,TOTAL 1.5 mg/dL (0.2-1.0); CALCIUM 9.1 mg/dL (8.5-10.1); CO2 37 mmol/L (21-32); COCKROFT - GAULT 90.44; CREATININE 0.7 mg/dL (0.7-1.3); GLUCOSE,RANDOM 114 mg/dL (74-106); SGOT/AST 97 U/L (15-37); SGPT/ALT 24 U/L (12-78); TOT PROT 7.9 g/dl (6.4-8.2)
[2016-09-08] MEDS ORDERED: diazePAM CARPU-JECT 10 MG/2 ML DISP.SYRIN ONE ×2 (13:51→13:57)
[2016-09-08] MEDS ORDERED: diazePAM CARPU-JECT 10 MG/2 ML DISP.SYRIN IVPUSH ONE ×2 (13:54→13:58)
[2016-09-08] MEDS ORDERED: POTASSIUM CHLORIDE TABS 20 MEQ TABLET.ER (FP) PO ONE (13:59)
[2016-09-08] MEDS ORDERED: POTASSIUM CHLORIDE ORAL LIQUID 20 MEQ/15 ML ONE (14:04)
[2016-09-08 15:00] VITALS: TEMP 98.7
[2016-09-08 18:51] VITALS: BP 128/75; PULSE 73
--- NOTE | 2016-09-09 16:31 | EKG ---
Test Reason : Blood Pressure : / mmHG Vent. Rate : 106 BPM Atrial Rate : 106 BPM P-R Int : 138 ms QRS Dur : 074 ms QT Int : 378 ms P-R-T Axes : 027 -07 035 degrees QTc Int : 502 ms SINUS TACHYCARDIA MINIMAL VOLTAGE CRITERIA FOR LVH, MAY BE NORMAL VARIANT BORDERLINE ECG WHEN COMPARED WITH ECG OF 08-SEP-2016 05:13, FUSION COMPLEXES ARE NO LONGER PRESENT PREMATURE VENTRICULAR COMPLEXES ARE NO LONGER PRESENT PREMATURE ATRIAL COMPLEXES ARE NO LONGER PRESENT Confirmed by RICHARD SETH MD ([id number]) on 09/09/2016 4:31:14 PM Referred By: Confirmed By:RICHARD SETH MD
== END 2016-09-08 18:50 | disposition other institution (70) ==
LOC: JER 12:00
PROC: 3E033NZ Introduction of Analgesics, Hypnotics, Sedatives into Peripheral Vein, Percutaneous Approach (ICD-10-PCS; principal; 2016-09-08)
PROC: 3E033GC Introduction of Other Therapeutic Substance into Peripheral Vein, Percutaneous Approach (ICD-10-PCS; 2016-09-08)
PROC: 3E0337Z Introduction of Electrolytic and Water Balance Substance into Peripheral Vein, Percutaneous Approach (ICD-10-PCS; 2016-09-08)
DX: E87.6 Hypokalemia (principal); J45.909 Unspecified asthma, uncomplicated; F10.10 Alcohol abuse, uncomplicated
CPT/HCPCS: 36415; 80053; 82009; 82803; 83735; 85025; 93005; 93010; 96361; 96365; 96375; 96376; 99284-25

== ENCOUNTER 2017-05-08 13:39 | Inpatient (IN) | payer OTHER ==
[2017-05-08 15:10] VITALS: BMI 28.5
--- NOTE | 2017-05-08 15:48 | HP ---
CIWA Score - CIWA Score Nausea/Vomitin Muscle Tremors: 3 Anxiety: 4-Mod. Anxious/Guarded Agitation: 3 Paroxysmal Sweats: 3 Orientation: 1-Uncertain about Date Tacttile Disturbances: 1-Very Mild Itch/Numbness Auditory Disturbances: 0-None Visual Disturbances: 0-None Headache: 0-None Present CIWA-Ar Total Score: 17 Admission ROS BHS - HPI Chief Complaint: Withdrawal sx. Allergies/Adverse Reactions: Allergies Allergy/AdvReac Type Severity Reaction Status Date / Time No Known Allergies Allergy Verified 09/08/16 12:13 History of Present Illness: 71 y/o man with a long hx. of alcoholism is admitted for detox. Pt. has been in previous detox, denies significant sobriety. Exam Limitations: No Limitations - Ebola screening Have you traveled outside of the country in the last 21 days: No (N) Have you had contact with anyone from an Ebola affected area: No Have you been sick,other than usual withdrawal symptoms: No Do you have a fever: No - Review of Systems Constitutional: Diaphoresis EENT: reports: No Symptoms Reported Respiratory: reports: No Symptoms reported Cardiac: reports: No Symptoms Reported GI: reports: Nausea, Abdominal cramping : reports: No Symptoms Reported Musculoskeletal: reports: No Symptoms Reported Integumentary: reports: Sweating Neuro: reports: Seizure (last 7 yrs. ago), Tremors Endocrine: reports: No Symptoms Reported Hematology: reports: No Symptoms Reported Psychiatric: reports: No Sypmtoms Reported Other Systems: Reviewed and Negative Patient History - Patient Medical History Hx Anemia: No Hx Asthma: Yes (on albuterol inhaler) Hx Chronic Obstructive Pulmonary Disease (COPD): No Hx Cancer: No Hx Cardiac Disorders: No Hx Congestive Heart Failure: No Hx Hypertension: No Hx Hypercholesterolemia: No Hx Pacemaker: No HX Cerebrovascular Accident: No Hx Seizures: Yes (last 7 years ago) Hx Dementia: No Hx Diabetes: No Hx Gastrointestinal Disorders: No Hx Liver Disease: No Hx Genitourinary Disorders: No Hx Sexually Transmitted Disorders: No Hx Renal Disease (ESRD): No Hx Thyroid Disease: No Hx Human Immunodeficiency Virus (HIV): No Hx Hepatitis C: No Hx Depression: Yes Hx Suicide Attempt: No Hx Bipolar Disorder: No Hx Schizophrenia: No - Patient Surgical History Past Surgical History: Yes Hx Neurologic Surgery: No Hx Cataract Extraction: No Hx Cardiac Surgery: No Hx Lung Surgery: No Hx Breast Surgery: No Hx Breast Biopsy: No Hx Abdominal Surgery: Yes (HERNIA REPAIR RIGHT) Hx Appendectomy: Yes (30 years go) Hx Cholecystectomy: No Hx Genitourinary Surgery: No Hx Section: No Hx Orthopedic Surgery: No Anesthesia Reaction: No - PPD History Previous Implant?: Yes Documented Results: Negative w/proof Implanted On Prior [facility] Admission?: Yes Date: 06/03/16 Results: 0mm PPD to be Administered?: No - Smoking Cessation Smoking history: Former smoker Have you smoked in the past 12 months: No Aproximately how many cigarettes per day: 0 Cigars Per Day: 0 Hx Chewing Tobacco Use: No Initiated information on smoking cessation: No - Substance & Tx. History Hx Alcohol Use: Yes Hx Substance Use: No Substance Use Type: Alcohol Hx Substance Use Treatment: Yes (Detox 05/2016 at [facility]) - Substances Abused Alcohol Route: Oral Frequency: Daily Amount used: Vodka 1-2 pints Age of first use: 12 Date of Last Use: 05/08/17 Family Disease History - Family Disease History Family Disease History: Heart Disease: Father (), Other: Grandparent ( UNCLE ), Mother (), Brother (ALCOHOL ) Admission Physical Exam BHS - Vital Signs Vital Signs: Vital Signs - 24 hr 05/08/17 15:04 Temperature 96.4 F L Pulse Rate 115 H Respiratory 20 Rate Blood Pressure 126/83 - Physical General Appearance: Yes: Alcohol on Breath, Intoxicated, Tremorous, Irritable, Sweating, Anxious HEENTM: Yes: Within Normal Limits Respiratory: Yes: Chest Non-Tender, Lungs Clear, Normal Breath Sounds Neck: Yes: Supple Breast: Yes: Breast Exam Deferred Cardiology: Yes: Regular Rhythm, Regular Rate, S1, S2 Abdominal: Yes: Normal Bowel Sounds, Non Tender, Soft Genitourinary: Yes: Within Normal Limits Back: Yes: Within Normal Limits Musculoskeletal: Yes: Within Normal Limits Extremities: Yes: Tremors Neurological: Yes: Fully Oriented, Alert Integumentary: Yes: Within Normal Limits Lymphatic: Yes: Within Normal Limits - Diagnostic (1) Alcohol dependence with uncomplicated withdrawal Current Visit: Yes Status: Acute (2) Alcohol dependence with uncomplicated intoxication Current Visit: Yes Status: Chronic (3) Glaucoma Current Visit: Yes Status: Chronic Qualifiers: Glaucoma type: open-angle Open angle glaucoma type: primary Laterality: bilateral Glaucoma stage: mild stage Qualified Code(s): H40.1131 - Primary open-angle glaucoma, bilateral, mild stage Cleared for Admission [facility] - Detox or Rehab [facility] Level of Care: Medically Managed Detox Regimen/Protocol: Librium [facility] Breath Alcohol Content Breath Alcohol Content: 0.322 Urine Drug Screen - Results Drug Screen Negative: Yes
[2017-05-08] MEDS ORDERED: ACETAMINOPHEN 325 MG TABLET (FP) PO PRN (15:55)
[2017-05-08] MEDS ORDERED: MAGNESIUM HYDROX 2400MG/30ML ORAL SUSPENSION 30 ML CUP PO PRN (15:55)
[2017-05-08] MEDS ORDERED: MAGNESIUM CITRATE 300 ML BOTTLE PO PRN (15:55)
[2017-05-08] MEDS ORDERED: guaiFENesin/D-METHORPHAN HB 10 ML UNIT-DOSE CUPS PO PRN (15:55)
[2017-05-08] MEDS ORDERED: MENTHOL/PHENOL 1 EACH UD MM PRN (15:55)
[2017-05-08] MEDS ORDERED: P-EPHED 60MG/TRIPROLIDI 2.5MG TABLET PO PRN (15:55)
[2017-05-08] MEDS ORDERED: MAG HYDROX/AL HYDROX/SIMETH 30 ML UNIT-DOSE CUP PO PRN (15:55)
[2017-05-08] MEDS ORDERED: chlordiazePOXIDE HCL 25 MG CAPSULE PO ONE (15:55)
[2017-05-08] MEDS ORDERED: chlordiazePOXIDE HCL 25 MG CAPSULE PO PRN (15:55)
[2017-05-08] MEDS ORDERED: LOPERAMIDE HCL 2 MG CAPSULE PO PRN (15:55)
[2017-05-08] MEDS ORDERED: hydrOXYzine PAMOATE 50 MG CAPSULE (FP) PO PRN (15:55)
[2017-05-08] MEDS ORDERED: IBUPROFEN 400 MG TABLET (FP) PO PRN (15:55)
[2017-05-08] MEDS ORDERED: ALBUTEROL SO4 18 GM HFA INHALER IH PRN (15:56)
[2017-05-08] MEDS: chlordiazePOXIDE HCL 25 MG CAPSULE PO SCH ×2 (19:04→22:24)
[2017-05-08] MEDS: THIAMINE HCL 100 MG TABLET (FP) PO SCH (22:23)
[2017-05-08] MEDS: BUDESONIDE/FORMETEROL FUMARATE 80/4.5 mcg INHALER IH SCH (22:23)
[2017-05-08] MEDS: LATANOPROST 0.005% OPHTH SOLN 2.5ML BOTTLE OU SCH (23:24)
[2017-05-08 23:38] LABS: URINE APPEARANCE CLEAR; URINE BILIRUBIN NEGATIVE (NEGATIVE); URINE BLOOD 1+ (NEGATIVE); URINE COLOR YELLOW; URINE GLUCOSE (UA) NEGATIVE (NEGATIVE); URINE KETONE NEGATIVE (NEGATIVE); URINE LEUK ESTERASE NEGATIVE (NEGATIVE); URINE NITRITE NEGATIVE (NEGATIVE); URINE PROTEIN NEGATIVE (NEGATIVE); URINE UROBILINOGEN NEGATIVE mg/dL (0.2-1.0)
[2017-05-08 23:47] LABS: EPI CELLS RARE /HPF (FEW); URINE BACTERIA RARE /hpf (NONE SEEN)
[2017-05-09] MEDS: chlordiazePOXIDE HCL 25 MG CAPSULE PO SCH ×4 (05:23→22:14)
--- NOTE | 2017-05-09 10:15 | PN ---
[facility] CIWA - CIWA Score Nausea/Vomitin-No Nausea/No Vomiting Muscle Tremors: 4-Moderate,w/Arms Extend Anxiety: 4-Mod. Anxious/Guarded Agitation: 4-Moderately Restless Paroxysmal Sweats: 1-Minimal Palms Moist Orientation: 0-Oriented Tacttile Disturbances: 3-Moderate Itch/Numb/Burn Auditory Disturbances: 0-None Visual Disturbances: 0-None Headache: 0-None Present CIWA-Ar Total Score: 16 BHS Progress Note (SOAP) Subjective: ANXIETY,SWEATS,TREMORS, INTERMITTENT SLEEP. Objective: 05/09/17 10:14 Vital Signs Temperature 97.7 F 05/09/17 09:06 Pulse Rate 121 H 05/09/17 09:06 Respiratory Rate 20 05/09/17 09:06 Blood Pressure 121/70 05/09/17 09:06 O2 Sat by Pulse Oximetry (%) Laboratory Last Values Urine Color Yellow 05/08/17 22:00 Urine Appearance Clear 05/08/17 22:00 Urine pH 6.0 (5.0-8.0) 05/08/17 22:00 Ur Specific [place] 1.008 (1.001-1.035) 05/08/17 22:00 Urine Protein Negative (NEGATIVE) 05/08/17 22:00 Urine Glucose (UA) Negative (NEGATIVE) 05/08/17 22:00 Urine Ketones Negative (NEGATIVE) 05/08/17 22:00 Urine Blood 1+ (NEGATIVE) H 05/08/17 22:00 Urine Nitrite Negative (NEGATIVE) 05/08/17 22:00 Urine Bilirubin Negative (NEGATIVE) 05/08/17 22:00 Urine Urobilinogen Negative mg/dL (0.2-1.0) 05/08/17 22:00 Ur Leukocyte Esterase Negative (NEGATIVE) 05/08/17 22:00 Urine WBC (Auto) 1 /hpf (3-5) 05/08/17 22:00 Urine RBC (Auto) <1 /hpf (0-3) 05/08/17 22:00 Ur Epithelial Cells Rare /HPF (FEW) 05/08/17 22:00 Urine Bacteria Rare /hpf (NONE SEEN) 05/08/17 22:00 OTHER LABS PENDING Assessment: 05/09/17 10:14 WITHDRAWAL SX Plan: CONTINUE DETOX
[2017-05-09 10:16] LABS: HEMATOCRIT 43.1 % (35.4-49); MCH 32.2 pg (25.7-33.7); MCHC 32.5 g/dl (32.0-35.9); MEAN CELL VOLUME 99.2 fl (80-96); MEAN PLT VOLUME 8.1 fl (7.5-11.1); PLATELET COUNT 91 K/MM3 (134-434); RBC 4.34 M/mm3 (4.00-5.60); RDW 17.1 % (11.9-15.9); WHITE BLOOD COUNT 3.8 K/mm3 (4.0-10.0)
[2017-05-09] MEDS: PRENATAL VITAMINS W/ FOLIC ACID TABLET (FP) PO SCH (10:25)
[2017-05-09] MEDS: BUDESONIDE/FORMETEROL FUMARATE 80/4.5 mcg INHALER IH SCH ×2 (10:25→22:13)
[2017-05-09] MEDS ORDERED: [UNRECOGNIZED DRUG - REMARK] AU PRN (10:31)
[2017-05-09 10:47] LABS: ALBUMIN 3.1 g/dl (3.4-5.0); ANION GAP 13 (8-16); BLOOD UREA NITROGEN 11 mg/dL (7-18); CALCIUM 7.7 mg/dL (8.5-10.1); CHLORIDE 98 mmol/L (98-107); CO2 30 mmol/L (21-32); GLUCOSE,RANDOM 103 mg/dL (74-106); SODIUM 141 mmol/L (136-145)
[2017-05-09 10:51] LABS: ALK PHOS 81 U/L (45-117); BILIRUBIN,TOTAL 0.8 mg/dL (0.2-1.0); CREATININE 0.7 mg/dL (0.7-1.3); SGOT/AST 58 U/L (15-37); SGPT/ALT 26 U/L (12-78); TOT PROT 6.9 g/dl (6.4-8.2)
[2017-05-09 11:07] LABS: POTASSIUM 2.9 mmol/L (3.5-5.1)
[2017-05-09] MEDS ORDERED: POTASSIUM CHLORIDE ORAL LIQUID 20 MEQ/15 ML PO ONE ×2 (12:30→13:35)
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
--- NOTE | 2017-05-09 13:09 | EKG ---
Test Reason : Blood Pressure : / mmHG Vent. Rate : 114 BPM Atrial Rate : 114 BPM P-R Int : 000 ms QRS Dur : 088 ms QT Int : 332 ms P-R-T Axes : 003 013 086 degrees QTc Int : 457 ms SINUS TACHYCARDIA OTHERWISE NORMAL ECG WHEN COMPARED WITH ECG OF 08-SEP-2016 12:10, NO SIGNIFICANT CHANGE WAS FOUND Confirmed by CHEL NESS MD ([id number]) on 05/09/2017 1:09:38 PM Referred By: Yash Ramsey Confirmed By:CHEL NESS MD
[2017-05-09] MEDS: TETRAHYDROZOLINE HCL 1 DROP DROPS OU SCH (17:32)
[2017-05-09] MEDS ORDERED: TETRAHYDROZOLINE HCL 1 DROP DROPS OU SCH ×2 (18:00→22:00)
[2017-05-09] MEDS ORDERED: [UNRECOGNIZED DRUG - REMARK] AU SCH (18:00)
[2017-05-09] MEDS: THIAMINE HCL 100 MG TABLET (FP) PO SCH (22:12)
[2017-05-09] MEDS: LATANOPROST 0.005% OPHTH SOLN 2.5ML BOTTLE OU SCH (22:13)
[2017-05-09] MEDS: POTASSIUM CHLORIDE ORAL LIQUID 20 MEQ/15 ML PO SCH (22:13)
[2017-05-10] MEDS: chlordiazePOXIDE HCL 25 MG CAPSULE PO SCH ×2 (05:49→10:08)
[2017-05-10] MEDS: POTASSIUM CHLORIDE ORAL LIQUID 20 MEQ/15 ML PO SCH ×2 (10:07→22:14)
[2017-05-10] MEDS: TETRAHYDROZOLINE HCL 1 DROP DROPS OU SCH ×2 (10:08→17:29)
[2017-05-10] MEDS: PRENATAL VITAMINS W/ FOLIC ACID TABLET (FP) PO SCH (10:08)
[2017-05-10] MEDS: BUDESONIDE/FORMETEROL FUMARATE 80/4.5 mcg INHALER IH SCH ×2 (10:08→22:14)
--- NOTE | 2017-05-10 11:41 | PN ---
[facility] CIWA - CIWA Score Nausea/Vomitin-No Nausea/No Vomiting Muscle Tremors: 4-Moderate,w/Arms Extend Anxiety: 4-Mod. Anxious/Guarded Agitation: 4-Moderately Restless Paroxysmal Sweats: 1-Minimal Palms Moist Orientation: 0-Oriented Tacttile Disturbances: 3-Moderate Itch/Numb/Burn Auditory Disturbances: 0-None Visual Disturbances: 0-None Headache: 0-None Present CIWA-Ar Total Score: 16 [facility] Progress Note (SOAP) Subjective: TREMORS,ANXIETY,INTERMITTENT SLEEP. Objective: 05/10/17 11:40 Vital Signs Temperature 98.7 F 05/10/17 09:08 Pulse Rate 102 H 05/10/17 09:08 Respiratory Rate 18 05/10/17 09:08 Blood Pressure 123/75 05/10/17 09:08 O2 Sat by Pulse Oximetry (%) Laboratory Last Values WBC 3.8 K/mm3 (4.0-10.0) L 05/09/17 07:30 RBC 4.34 M/mm3 (4.00-5.60) 05/09/17 07:30 Hgb 14.0 GM/dL (11.7-16.9) 05/09/17 07:30 Hct 43.1 % (35.4-49) 05/09/17 07:30 MCV 99.2 fl (80-96) H 05/09/17 07:30 MCH 32.2 pg (25.7-33.7) 05/09/17 07:30 MCHC 32.5 g/dl (32.0-35.9) 05/09/17 07:30 RDW 17.1 % (11.9-15.9) H 05/09/17 07:30 Plt Count 91 K/MM3 (134-434) L 05/09/17 07:30 MPV 8.1 fl (7.5-11.1) 05/09/17 07:30 Sodium 141 mmol/L (136-145) 05/09/17 07:30 Potassium 2.9 mmol/L (3.5-5.1) L* 05/09/17 07:30 Chloride 98 mmol/L (98-107) 05/09/17 07:30 Carbon Dioxide 30 mmol/L (21-32) 05/09/17 07:30 Anion Gap 13 (8-16) 05/09/17 07:30 BUN 11 mg/dL (7-18) 05/09/17 07:30 Creatinine 0.7 mg/dL (0.7-1.3) 05/09/17 07:30 Creat Clearance w eGFR > 60 (>60) 05/09/17 07:30 Random Glucose 103 mg/dL (74-106) 05/09/17 07:30 Calcium 7.7 mg/dL (8.5-10.1) L 05/09/17 07:30 Total Bilirubin 0.8 mg/dL (0.2-1.0) D 05/09/17 07:30 AST 58 U/L (15-37) H D 05/09/17 07:30 ALT 26 U/L (12-78) 05/09/17 07:30 Alkaline Phosphatase 81 U/L (45-117) 05/09/17 07:30 Total Protein 6.9 g/dl (6.4-8.2) 05/09/17 07:30 Albumin 3.1 g/dl (3.4-5.0) L D 05/09/17 07:30 Urine Color Yellow 05/08/17 22:00 Urine Appearance Clear 05/08/17 22:00 Urine pH 6.0 (5.0-8.0) 05/08/17 22:00 Ur Specific [place] 1.008 (1.001-1.035) 05/08/17 22:00 Urine Protein Negative (NEGATIVE) 05/08/17 22:00 Urine Glucose (UA) Negative (NEGATIVE) 05/08/17 22:00 Urine Ketones Negative (NEGATIVE) 05/08/17 22:00 Urine Blood 1+ (NEGATIVE) H 05/08/17 22:00 Urine Nitrite Negative (NEGATIVE) 05/08/17 22:00 Urine Bilirubin Negative (NEGATIVE) 05/08/17 22:00 Urine Urobilinogen Negative mg/dL (0.2-1.0) 05/08/17 22:00 Ur Leukocyte Esterase Negative (NEGATIVE) 05/08/17 22:00 Urine WBC (Auto) 1 /hpf (3-5) 05/08/17 22:00 Urine RBC (Auto) <1 /hpf (0-3) 05/08/17 22:00 Ur Epithelial Cells Rare /HPF (FEW) 05/08/17 22:00 Urine Bacteria Rare /hpf (NONE SEEN) 05/08/17 22:00 RPR Titer Nonreactive (NONREACTIVE) 05/09/17 07:30 K+ = 2.9 STARTED ON KCL LIQUID 20 MEQ PO BID Assessment: 05/10/17 11:40 WITHDRAWAL SX Plan: CONTINUE DETOX
[2017-05-10] MEDS: chlordiazePOXIDE 5 MG CAPSULE PO SCH ×2 (17:27→22:14)
[2017-05-10] MEDS: THIAMINE HCL 100 MG TABLET (FP) PO SCH (22:14)
[2017-05-10] MEDS: LATANOPROST 0.005% OPHTH SOLN 2.5ML BOTTLE OU SCH (22:15)
[2017-05-11] MEDS: chlordiazePOXIDE 5 MG CAPSULE PO SCH ×2 (06:11→10:27)
[2017-05-11] MEDS: BUDESONIDE/FORMETEROL FUMARATE 80/4.5 mcg INHALER IH SCH ×2 (10:23→22:05)
[2017-05-11] MEDS: POTASSIUM CHLORIDE ORAL LIQUID 20 MEQ/15 ML PO SCH ×2 (10:23→22:05)
[2017-05-11] MEDS: TETRAHYDROZOLINE HCL 1 DROP DROPS OU SCH ×2 (10:23→17:43)
[2017-05-11] MEDS: PRENATAL VITAMINS W/ FOLIC ACID TABLET (FP) PO SCH (10:24)
--- NOTE | 2017-05-11 11:22 | PN ---
[facility] Progress Note (SOAP) Subjective: ANXIETY,SLIGHT TREMORS,SWEATS. Objective: 05/11/17 11:22 Vital Signs Temperature 96.1 F L 05/11/17 09:06 Pulse Rate 101 H 05/11/17 09:06 Respiratory Rate 20 05/11/17 09:06 Blood Pressure 113/82 05/11/17 09:06 O2 Sat by Pulse Oximetry (%) Laboratory Last Values WBC 3.8 K/mm3 (4.0-10.0) L 05/09/17 07:30 RBC 4.34 M/mm3 (4.00-5.60) 05/09/17 07:30 Hgb 14.0 GM/dL (11.7-16.9) 05/09/17 07:30 Hct 43.1 % (35.4-49) 05/09/17 07:30 MCV 99.2 fl (80-96) H 05/09/17 07:30 MCH 32.2 pg (25.7-33.7) 05/09/17 07:30 MCHC 32.5 g/dl (32.0-35.9) 05/09/17 07:30 RDW 17.1 % (11.9-15.9) H 05/09/17 07:30 Plt Count 91 K/MM3 (134-434) L 05/09/17 07:30 MPV 8.1 fl (7.5-11.1) 05/09/17 07:30 Sodium 141 mmol/L (136-145) 05/09/17 07:30 Potassium 2.9 mmol/L (3.5-5.1) L* 05/09/17 07:30 Chloride 98 mmol/L (98-107) 05/09/17 07:30 Carbon Dioxide 30 mmol/L (21-32) 05/09/17 07:30 Anion Gap 13 (8-16) 05/09/17 07:30 BUN 11 mg/dL (7-18) 05/09/17 07:30 Creatinine 0.7 mg/dL (0.7-1.3) 05/09/17 07:30 Creat Clearance w eGFR > 60 (>60) 05/09/17 07:30 Random Glucose 103 mg/dL (74-106) 05/09/17 07:30 Calcium 7.7 mg/dL (8.5-10.1) L 05/09/17 07:30 Total Bilirubin 0.8 mg/dL (0.2-1.0) D 05/09/17 07:30 AST 58 U/L (15-37) H D 05/09/17 07:30 ALT 26 U/L (12-78) 05/09/17 07:30 Alkaline Phosphatase 81 U/L (45-117) 05/09/17 07:30 Total Protein 6.9 g/dl (6.4-8.2) 05/09/17 07:30 Albumin 3.1 g/dl (3.4-5.0) L D 05/09/17 07:30 Urine Color Yellow 05/08/17 22:00 Urine Appearance Clear 05/08/17 22:00 Urine pH 6.0 (5.0-8.0) 05/08/17 22:00 Ur Specific [place] 1.008 (1.001-1.035) 05/08/17 22:00 Urine Protein Negative (NEGATIVE) 05/08/17 22:00 Urine Glucose (UA) Negative (NEGATIVE) 05/08/17 22:00 Urine Ketones Negative (NEGATIVE) 05/08/17 22:00 Urine Blood 1+ (NEGATIVE) H 05/08/17 22:00 Urine Nitrite Negative (NEGATIVE) 05/08/17 22:00 Urine Bilirubin Negative (NEGATIVE) 05/08/17 22:00 Urine Urobilinogen Negative mg/dL (0.2-1.0) 05/08/17 22:00 Ur Leukocyte Esterase Negative (NEGATIVE) 05/08/17 22:00 Urine WBC (Auto) 1 /hpf (3-5) 05/08/17 22:00 Urine RBC (Auto) <1 /hpf (0-3) 05/08/17 22:00 Ur Epithelial Cells Rare /HPF (FEW) 05/08/17 22:00 Urine Bacteria Rare /hpf (NONE SEEN) 05/08/17 22:00 RPR Titer Nonreactive (NONREACTIVE) 05/09/17 07:30 Assessment: 05/11/17 11:22 WITHDRAWAL SX Plan: CONTINUE DETOX
[2017-05-11] MEDS: chlordiazePOXIDE HCL 10 MG CAPSULE PO SCH ×2 (17:41→22:05)
[2017-05-11] MEDS: THIAMINE HCL 100 MG TABLET (FP) PO SCH (22:05)
[2017-05-11] MEDS: LATANOPROST 0.005% OPHTH SOLN 2.5ML BOTTLE OU SCH (22:05)
[2017-05-12] MEDS: chlordiazePOXIDE HCL 10 MG CAPSULE PO SCH ×2 (06:33→10:35)
[2017-05-12 09:42] VITALS: BP 119/66; PULSE 86; TEMP 96.4
[2017-05-12] MEDS: PRENATAL VITAMINS W/ FOLIC ACID TABLET (FP) PO SCH (10:34)
[2017-05-12] MEDS: TETRAHYDROZOLINE HCL 1 DROP DROPS OU SCH (10:35)
[2017-05-12] MEDS: BUDESONIDE/FORMETEROL FUMARATE 80/4.5 mcg INHALER IH SCH (10:35)
[2017-05-12] MEDS: POTASSIUM CHLORIDE ORAL LIQUID 20 MEQ/15 ML PO SCH (10:35)
--- NOTE | 2017-05-12 12:27 | DS ---
[facility] Detox Discharge Summary Admission Date: 05/08/17 Discharge Date: 05/12/17 - History Present History: Alcohol Dependence Additional Comments: DETOX COMPLETED, ALERT O X 3. PT REPORTS HE IS IN THE PROCESS OF GETTING A PMD BUT USES [facility] FOR MEDICAL CARE AT THE MEANTIME. Pertinent Past History: SEE DX BELOW - Physical Exam Results Vital Signs: Vital Signs Temperature 96.4 F L 05/12/17 09:42 Pulse Rate 86 05/12/17 09:42 Respiratory Rate 18 05/12/17 09:42 Blood Pressure 119/66 05/12/17 09:42 O2 Sat by Pulse Oximetry (%) Pertinent Admission Physical Exam Findings: WITHDRAWAL SX - Treatment Hospital Course: Detox Protocol Followed, Detoxed Safely, Responded well, Discharged Condition Good - Medication Discharge Medications: Ambulatory Orders Albuterol Sulfate Inhaler - [Ventolin HFA Inhaler -] 2 inh PO Q4H PRN #1 cartridge 04/16/16 Budesonide/Formeterol Fumarate [SYMBICORT 80/4.5mcg -] 2 inh IH BID #1 canister 04/16/16 Tetrahydrozoline HCl/Zinc Sulf [Visine Allergy Relief Drop] 2 drop AU PRN PRN # 1 drops 04/16/16 Latanoprost 0.005% Eye Drops [Xalatan 0.005% Eye Drops -] 1 drop OU HS #1 drop 07/29/16 - Diagnosis (1) Alcohol dependence with uncomplicated withdrawal Current Visit: Yes Status: Acute (2) Glaucoma Current Visit: Yes Status: Chronic Qualifiers: Glaucoma type: open-angle Open angle glaucoma type: primary Laterality: bilateral Glaucoma stage: mild stage Qualified Code(s): H40.1131 - Primary open-angle glaucoma, bilateral, mild stage (3) Arthritis Current Visit: Yes Status: Chronic (4) COPD (chronic obstructive pulmonary disease) Current Visit: Yes Status: Chronic Qualifiers: COPD type: emphysema Emphysema type: unspecified Qualified Code(s): J43.9 - Emphysema, unspecified (5) GERD (gastroesophageal reflux disease) Current Visit: Yes Status: Chronic Qualifiers: Esophagitis presence: esophagitis presence not specified Qualified Code(s) : K21.9 - Gastro-esophageal reflux disease without esophagitis (6) Weight loss Current Visit: Yes Status: Acute - AMA Did Patient Leave Against Medical Advice: No
== END 2017-05-12 12:32 | disposition home or self-care (01) | DRG 897 ==
LOC: YASAS 13:39 → Y3N 16:49
PROVIDERS: ADMIT Internal Medicine; ATTEND Internal Medicine
PROC: HZ2ZZZZ Detoxification Services for Substance Abuse Treatment (ICD-10-PCS; principal; 2017-05-08)
DX: F19.230 Other psychoactive substance dependence with withdrawal, uncomplicated (principal); F33.9 Major depressive disorder, recurrent, unspecified; F10.230 Alcohol dependence with withdrawal, uncomplicated; J43.9 Emphysema, unspecified; K21.9 Gastro-esophageal reflux disease without esophagitis; M12.9 Arthropathy, unspecified; H40.1131 Primary open-angle glaucoma, bilateral, mild stage; R63.4 Abnormal weight loss; Z68.28 Body mass index [BMI] 28.0-28.9, adult; Z86.69 Personal history of other diseases of the nervous system and sense organs; Z63.4 Disappearance and death of family member
CPT/HCPCS: 36415; 80053; 81003; 81015; 85027; 86593; 93005; 93010

== ENCOUNTER 2018-04-19 07:28 | Day surgery (SDC) | payer OTHER ==
[2018-04-12 13:31] VITALS: BMI 24.3
[2018-04-19] MEDS ORDERED: PROPOFOL 20 ML ONE ×3 (08:30)
[2018-04-19 09:00] VITALS: TEMP 97.6
[2018-04-19 09:30] VITALS: BP 112/85; PULSE 102
--- NOTE | 2018-04-21 11:49 | PATH ---
Surgical Pathology Report Patient Name: MERCEDES DEL CASTILLO JR [facility]. Rec. #: [id number] /Age/Gender: 1945 (Age: 72) / M Account: [id number] Location: [facility] Taken: 04/19/2018 Received: 04/19/2018 Reported: 04/21/2018 Physicians: Nilo Miguel M.D. Specimen(s) Received A: SPLENIC FLEXURE B: CECUM C: RIGHT COLON Clinical History Rule out colon cancer Postoperative diagnosis: Polyps Final Diagnosis A. POLYP AT SPLENIC FLEXURE, POLYPECTOMY: CONSISTENT WITH INFLAMMATORY POLYP. B. 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 C. POLYP AT RIGHT COLON, POLYPECTOMY: TUBULAR ADENOMA. Electronically Signed Dee Dee Dowling M.D. Gross Description A. Received in formalin, labeled "polyp at splenic flexure" are 2 rbo, irregular portions of soft tissue measuring 0.1 and 0.2 cm. in greatest dimension. The specimens are submitted in toto in one cassette. B. Received in formalin, labeled "polyp at cecum" is a rob, irregular portion of soft tissue measuring 0.4 cm. in greatest dimension. The specimen is submitted in toto in one cassette. C. Received in formalin, labeled "polyp at right colon" are 2 rob, irregular portions of soft tissue measuring 0.1 and 0.2 cm. in greatest dimension. The specimens are submitted in toto in one cassette. 04/20/2018 saudi04/20/2018
== END 2018-04-19 09:30 | disposition home or self-care (01) ==
LOC: FASU-ENDO 07:28
PROVIDERS: ATTEND Internal Medicine Gastroenterology
PROC: 0DBL8ZX Excision of Transverse Colon, Via Natural or Artificial Opening Endoscopic, Diagnostic (ICD-10-PCS; 2018-04-19)
PROC: 0DBH8ZX Excision of Cecum, Via Natural or Artificial Opening Endoscopic, Diagnostic (ICD-10-PCS; 2018-04-19)
PROC: 0DBK8ZX Excision of Ascending Colon, Via Natural or Artificial Opening Endoscopic, Diagnostic (ICD-10-PCS; principal; 2018-04-19 08:00)
DX: Z12.11 Encounter for screening for malignant neoplasm of colon (principal); D12.0 Benign neoplasm of cecum; D12.2 Benign neoplasm of ascending colon; D12.3 Benign neoplasm of transverse colon; K57.30 Diverticulosis of large intestine without perforation or abscess without bleeding
CPT/HCPCS: 88305-TC

== ENCOUNTER 2023-05-21 14:28 | Inpatient (IN) | payer OTHER ==
[2023-05-21 16:47] VITALS: BMI 19.8
[2023-05-21] MEDS ORDERED: ALBUTEROL SO4 HFA INHALER IH PRN (17:17)
[2023-05-21] MEDS ORDERED: diazePAM 5 MG TABLET PO PRN (17:33)
[2023-05-21] MEDS ORDERED: diazePAM 5 MG TABLET ONE (17:41)
[2023-05-21] MEDS: diazePAM 5 MG TABLET PO SCH (17:42)
[2023-05-21] MEDS ORDERED: MAGNESIUM HYDROX 2400MG/30ML ORAL SUSPENSION 30 ML CUP PO PRN (17:55)
[2023-05-21] MEDS ORDERED: LOPERAMIDE HCL 2 MG CAPSULE PO PRN (17:55)
[2023-05-21] MEDS ORDERED: ONDANSETRON *ODT* 4 MG TABLET SL PRN (17:55)
[2023-05-21] MEDS ORDERED: BENZONATATE 200 MG CAPSULE PO PRN (17:55)
[2023-05-21] MEDS ORDERED: ACETAMINOPHEN 325 MG TABLET (FP) PO PRN (17:55)
[2023-05-21] MEDS ORDERED: MAG HYDROX/AL HYDROX/SIMETH 30 ML UNIT-DOSE CUP PO PRN (17:55)
[2023-05-21] MEDS ORDERED: P-EPHED 60MG/TRIPROLIDI 2.5MG TABLET PO PRN (17:55)
[2023-05-21] MEDS ORDERED: BISMUTH SUBSALICYLATE 524 MG/30 ML PO PRN (17:55)
[2023-05-21] MEDS ORDERED: POLYETHYLENE GLYCOL (HEALTHYLAX) 3350 17 GM PACKET PO PRN (17:55)
[2023-05-21] MEDS ORDERED: guaiFENesin 600 MG TABLET.ER (FP) PO PRN (17:55)
[2023-05-21] MEDS ORDERED: BENZOCAINE/MENTHOL (CHLORASEPTIC ) LOZENGE MM PRN (17:55)
[2023-05-21] MEDS: MELATONIN 5 MG TABLETS PO PRN (22:50)
[2023-05-21] MEDS: THIAMINE HCL 100 MG TABLET (FP) PO SCH (22:50)
[2023-05-22] MEDS: PRENATAL VITAMINS W/ FOLIC ACID TABLET (FP) PO SCH (10:10)
[2023-05-22] MEDS: IBUPROFEN 400 MG TABLET (FP) PO PRN (10:10)
[2023-05-22 11:29] LABS: HEMATOCRIT 40.1 % (35.4-49); HEMOGLOBIN 13.2 GM/dL (11.7-16.9); MCH 33.4 pg (25.7-33.7); MCHC 32.8 g/dl (32.0-35.9); MEAN CELL VOLUME 101.7 fl (80-96); MEAN PLT VOLUME 8.1 fl (7.5-11.1); PLATELET COUNT 132 10^3/uL (134-434); RBC 3.95 M/mm3 (4.00-5.60); RDW 20.5 % (11.9-15.9); WHITE BLOOD COUNT 4.1 K/mm3 (4.0-10.0)
[2023-05-22 11:45] LABS: CHLORIDE 94 mmol/L (98-107); SODIUM 142 mmol/L (136-145)
[2023-05-22 11:47] LABS: CALCIUM 9.2 mg/dL (8.5-10.1)
[2023-05-22 11:48] LABS: ALBUMIN 3.5 g/dl (3.4-5.0); BLOOD UREA NITROGEN 6.6 mg/dL (7-18); CO2 41 mmol/L (21-32); GLUCOSE,RANDOM 107 mg/dL (74-106)
[2023-05-22 11:50] LABS: SGPT/ALT 27 U/L (13-61)
[2023-05-22 11:51] LABS: CREATININE 0.6 mg/dL (0.55-1.3); SGOT/AST 59 U/L (15-37)
[2023-05-22 11:52] LABS: TOT PROT 7.7 g/dl (6.4-8.2)
[2023-05-22 11:53] LABS: ALK PHOS 62 U/L (45-117)
[2023-05-22 11:54] LABS: ANION GAP 8 mmol/L (4-13); POTASSIUM 2.7 mmol/L (3.5-5.1)
[2023-05-22] MEDS: amLODIPine BESYLATE 5 MG TABLET (FP) PO SCH (12:19)
[2023-05-22] MEDS: POTASSIUM CHLORIDE ORAL LIQUID 20 MEQ/15 ML PO ONE ×2 (12:19→17:13)
[2023-05-22] MEDS: BUDESONIDE/FORMETEROL FUMARATE 80/4.5 mcg INHALER IH SCH (12:20)
[2023-05-22 14:13] LABS: POTASSIUM 3.1 mmol/L (3.5-5.1)
[2023-05-22 14:15] LABS: CALCIUM 8.6 mg/dL (8.5-10.1)
[2023-05-22 14:16] LABS: ALBUMIN 3.8 g/dl (3.4-5.0); BLOOD UREA NITROGEN 6.9 mg/dL (7-18)
[2023-05-22 14:19] LABS: CREATININE 0.8 mg/dL (0.55-1.3)
[2023-05-22 14:20] LABS: TOT PROT 7.8 g/dl (6.4-8.2)
[2023-05-22] MEDS: ATORVASTATIN CA 10 MG TABLET (FP) PO SCH (22:24)
[2023-05-22] MEDS: LATANOPROST 0.005% OPHTH SOLN 2.5ML BOTTLE OU SCH (22:26)
[2023-05-23] MEDS: diazePAM 5 MG TABLET PO SCH (05:24)
[2023-05-23] MEDS: predniSONE 20 MG TABLET (UD) PO SCH (10:54)
[2023-05-23 11:17] LABS: POTASSIUM 3.2 mmol/L (3.5-5.1)
[2023-05-23 11:27] LABS: CALCIUM 8.7 mg/dL (8.5-10.1)
[2023-05-23 11:28] LABS: BLOOD UREA NITROGEN 7.6 mg/dL (7-18)
[2023-05-23 11:31] LABS: CREATININE 0.6 mg/dL (0.55-1.3)
[2023-05-23] MEDS: LISINOPRIL 5 MG TABLET PO SCH (11:39)
[2023-05-23] MEDS: POTASSIUM CHLORIDE ORAL LIQUID 20 MEQ/15 ML PO ONE (11:39)
[2023-05-23] MEDS: QUINAPRIL HCL 5 MG TABLET PO SCH (11:40)
[2023-05-23] MEDS: POTASSIUM CHLORIDE ORAL LIQUID 20 MEQ/15 ML PO SCH (22:41)
[2023-05-24] MEDS: diazePAM 5 MG TABLET PO SCH (05:17)
[2023-05-25] MEDS: diazePAM 5 MG TABLET PO ONE (05:42)
[2023-05-25 06:19] VITALS: BP 131/75; PULSE 88; RESP 17; TEMP 97.7
== END 2023-05-25 09:17 | disposition home or self-care (01) | DRG 897 ==
LOC: YASAS 14:28 → Y6N 20:37
PROVIDERS: ADMIT Allergy & Immunology; ATTEND Surgery
PROC: HZ2ZZZZ Detoxification Services for Substance Abuse Treatment (ICD-10-PCS; principal; 2023-05-21)
DX: F10.230 Alcohol dependence with withdrawal, uncomplicated (principal); E87.6 Hypokalemia; I10 Essential (primary) hypertension; J43.9 Emphysema, unspecified; H40.1131 Primary open-angle glaucoma, bilateral, mild stage
CPT/HCPCS: 36415; 71046-TC-FY; 80048; 80053; 80307; 84132; 85027; 86780; 87635; 93005; 93010